=== PATIENT | female | born 1950 | race Caucasian/White ===

== ENCOUNTER 2021-11-27 19:22 | Inpatient (IN) | payer MEDICARE, SELFPAY ==
--- NOTE | ~2021-11-27 | US_ITS ---
EXAMINATION: US carotid duplex BI DATE: 11/28/2021 07:58 INDICATION: Syncope TECHNIQUE: Grayscale, color Doppler, and pulsed Doppler images of the cervical carotid arteries were obtained. The degree of vessel stenosis is placed in one of the following categories: normal, <50%, 5 0-69%, >=70% but less than near-occlusion, near-occlusion, or total occlusion. Note that percent sten osis relative to normal distal artery lumen diameter is indirectly measured from velocity measurement s as described by Thiago, et al. Radiology 2003; 229:340-346. COMPARISON: None. FINDINGS: RIGHT: The right common carotid artery (CCA) peak systolic velocity (PSV) is 89.4 cm/s. The right internal c arotid artery (ICA) PSV is 69.9 cm/s. The right ICA end-diastolic velocity (EDV) is 19.0 cm/s. [facility] ICA/CCA PSV ratio is 0.8. Grayscale and color Doppler images yield an estimate of 0% diameter red uction from plaque in the ICA. The external carotid artery (ECA) PSV is 71.4 cm/s. There is antegrade flow in the right vertebral artery. LEFT: The left CCA PSV is 108.3 cm/s. The left ICA PSV is 117.1 cm/s. The left ICA EDV is 16.6 cm/s. The [facility] ICA/CCA PSV ratio is 1.1. Grayscale and color Doppler images yield an estimate of 0% diameter redu ction from plaque in the ICA. The ECA PSV is 122.2 cm/s. There is antegrade flow in the left vertebra l artery. IMPRESSION: 1. No stenosis in the right internal carotid artery. 2. No stenosis in the left internal carotid artery. Reviewed, dictated and finalized at [facility]. Reviewed, dictated and finalized at [facility].
--- NOTE | ~2021-11-27 | US_ITS ---
EXAMINATION: US renal BI DATE: 11/28/2021 09:44 INDICATION: Renal insufficiency with elevated BUN/creatinine TECHNIQUE: Multiple ultrasound grayscale images of the kidneys were obtained. COMPARISON: None. FINDINGS: The right kidney measures 8.9 x 4.9 x 4.7 cm. The left kidney measures 9.1 x 5.0 x 6.1 cm. The kidney s demonstrate normal echogenicity. There is no hydronephrosis in either kidney. No stones identified . The bladder is normal. IMPRESSION: 1. Normal kidneys without hydronephrosis. Reviewed, dictated and finalized at [facility].
--- NOTE | ~2021-11-27 | CT_ITS ---
EXAMINATION: CT brain wo con, CT cervical spine wo con EXAM DATE: 11/27/2021 20:00 (accession [id number]), 11/27/2021 20:02 (accession [id number]) INDICATION: Head injury. TECHNIQUE: Spiral CT of the head was performed without contrast. Axial, coronal and sagittal images were reviewed. Spiral CT of the cervical spine was performed without contrast. Axial images were rev iewed. Coronal and sagittal reformatted images were also reviewed. The dose-length product (DLP) fo r this examination was 605.33 (accession [id number]), 432.62 (accession [id number]) mGy-cm. The exposure was tailored according to patient size, and iterative reconstruction (ASIR) was used as additional dose reduction technique. There is no prior study for comparison. FINDINGS: HEAD CT: There is no acute intraparenchymal hemorrhage. No evidence of intraparenchymal brain mass l esion. No evidence of acute infarction. There is mild periventricular and subcortical hypodensity, n onspecific but probably related to small vessel ischemic disease. There is moderate prominence of t he sulci and ventricles related to cerebral atrophy. There is no mass effect or midline shift. The re is no obstructive hydrocephalus suspected. There are no extra-axial collections. There are no ac minto calvarial fractures. There is vertex scalp laceration, hematoma Soft tissue is unremarkable. Th e visualized sinuses and mastoid air cells are well aerated. There is 6 mm calcified extra-axial mass in the left vertex probably small meningioma. CERVICAL CT: There is fusion hardware bridging the left lamina is at C3-C6 there are defects within t he right lamina is of these 4 levels which are likely postoperative for from prior fractures. No acut e cervical fractures suspected.. The odontoid process is intact. Pre-dens space is normal. Prevert ebral soft tissue is normal. There are no soft tissue abnormalities identified. There is no disc sp dave widening or traumatic vertebral body subluxation suspected. Moderate disc disease at C6-7, mild at the other levels. Moderate cervical arthropathy. A detailed level by level evaluation of spondylo sis can be added as addendum if requested. IMPRESSION: 1. No acute intracranial findings or cervical fracture. 2. Deep scalp vertex laceration, hematoma. 3. Cervical surgical changes and right-sided lamina defects which are probably postoperative. No acu te cervical fractures suspected. 4. Age-related intracranial findings. Reviewed, dictated and finalized at [facility]. IMPRESSION: 1. No acute intracranial findings or cervical fracture. 2. Deep scalp vertex laceration, hematoma. 3. Cervical surgical changes and right-sided lamina defects which are probably postoperative. No acute cervical fractures suspected. 4. Age-related intracranial findings.
[2021-11-27 19:25] VITALS: BP 107/46; PULSE 54; RESP 18; TEMP 36.2; O2SAT 97
--- NOTE | 2021-11-27 19:32 | ECG_ITS ---
Measurements Intervals [place] Rate: 50 P: -88 ME: 171 QRS: -20 QRSD: 93 T: 75 QT: 558 QTc: 509 Interpretive Statements SINUS BRADY[address]ARDIA ST DEVIATION AND MARKED T-WAVE ABNORMALITY, CONSIDER ANTEROSEPTAL ISCHEMIA [-0.5+ mV T WAVE IN I/aVL/V3-V6] ABNORMAL ECG NO PREVIOUS ECG AVAILABLE FOR COMPARISON Electronically Signed On 11-28-2021 16:16:15 CDT by Carloz Oreilly M.D.
[2021-11-27] MEDS: SODIUM CHLORIDE 0.9% IV 1,000 ML 999 ML IV CONT (20:57)
[2021-11-27 21:07] LABS: Hemoglobin 8.3 g/dL (12.0-15.0); Immature Platelet Fraction Pct 3.3 % (0.9-11.2); Mean Corpuscular HGB Conc 30.7 g/dl (32-36); Mean Corpuscular Hemoglobin 30.7 pg (26-34); Mean Platelet Volume 9.8 fl (7.4-10.4); Platelet Count Result 821 k/mm3 (150-375); Red Cell Distribution Width 14.2 % (11.5-14.5); White Blood Count 18.2 K/mm3 (4.5-10.0)
[2021-11-27 21:15] LABS: INR 1.1; Prothrombin Time 14.1 Seconds (11.1-14.7)
[2021-11-27 21:21] LABS: Band Neutrophils Percent 5 % (0-6); Eosinophils Absolute Manual 0.18 K/mm3 (0.02-0.5); Eosinophils Percent Manual 1 % (0-4); Lymphocytes Absolute Manual 1.09 K/mm3 (1.1-4.5); Monocytes Absolute Manual 1.27 K/mm3 (0.1-0.90); Monocytes Percent Manual 7 % (3-9); Neutrophils Absolute Manual 15.65 K/mm3 (1.7-7.2); Neutrophils Percent Manual 81 % (46-73); Platelet Estimate Increased (Adequate); Total Cells Counted 100
[2021-11-27 21:22] LABS: Hypochromasia 1+ (NORMAL)
[2021-11-27 21:43] LABS: Anion Gap 8 mmol/L (8-16); Blood Urea Nitrogen 36 mg/dL (7-17); Calcium 8.4 mg/dL (8.4-10.2); Carbon Dioxide 23 mmol/L (22-30); Chloride 101 mmol/L (98-107); Estimated CRCL calculation 25 ml/min; Estimated Glomerular Filt Rate 24; Glucose 188 mg/dL (65-110); Potassium 4.8 mmol/L (3.4-5.0); Sodium 132 mmol/L (137-145)
--- NOTE | 2021-11-27 21:45 | ED.FALL ---
HPI - Fall General Chief Complaint: Fall Stated Complaint: FALL, HEAD LAC Time Seen by Provider: 11/27/21 19:32 Source: patient Mode of arrival: EMS Limitations: no limitations History of Present Illness HPI Narrative: Patient is a 71-year-old female who was sitting on a toilet, felt lightheaded and fell hitting her head on the floor. Patient states that she almost passed out but did not. Patient complaining of laceration back of her head. Patient denies any neck, chest, back, abdomen, pelvis, hip or any extremity pain/injury. Related Data Home Medications Medication Instructions Recorded Confirmed allopurinol 100 mg PO DAILY 11/19/21 11/19/21 aspirin 81 mg PO DAILY 11/19/21 11/19/21 bupropion HCl 300 mg PO QAM 11/19/21 11/19/21 cetirizine [Zyrtec] 10 mg PO DAILY 11/19/21 11/19/21 clopidogrel 75 mg PO DAILY 11/19/21 11/19/21 evolocumab [Repatha SureClick] 140 mg SUBCUT [id number] 11/19/21 11/19/21 ezetimibe [Zetia] 10 mg PO DAILY 11/19/21 11/19/21 ferrous sulfate 325 mg PO DAILY 11/19/21 11/19/21 zdvqwgdungk-mosrsyxli-ywlexzen 1 inh INHALATION DAILY 11/19/21 11/19/21 [Trelegy Ellipta] gabapentin 300 mg PO HS 11/19/21 11/19/21 hydralazine 50 mg PO DAILY 11/19/21 11/19/21 insulin glargine [Lantus U-100 See Rx Instructions .ROUTE .COMPLEX 11/19/21 11/19/21 Insulin] insulin regular human [Novolin R 1 sliding scale dose SUBCUT 11/19/21 11/19/21 Regular U-100 Insuln] USEASDIRECTD levothyroxine 50 mcg PO DAILY 11/19/21 11/19/21 nebivolol [Bystolic] 5 mg PO DAILY 11/19/21 11/19/21 torsemide 80 mg PO QAM 11/19/21 11/19/21 Allergies Allergy/AdvReac Type Severity Reaction Status Date / Time potassium Allergy Unknown Verified 11/18/21 19:55 ambrisentan AdvReac Other Verified 11/18/21 19:55 amoxicillin AdvReac Nausea and Verified 11/18/21 19:55 Vomiting codeine AdvReac Nausea and Verified 11/18/21 19:55 Vomiting morphine AdvReac Vomiting Verified 11/18/21 19:55 rosuvastatin AdvReac Muscle Pain Verified 11/18/21 19:55 Review of Systems Review of Systems: All systems reviewed & are unremarkable except as noted in HPI and below Constitutional: Constitutional: Denies body ache(s), Denies chills, Denies excessive sweating, Denies fatigue, Denies fever(s), Denies headache(s), Denies lethargy, Denies malaise, Denies weakness and Denies weight loss Eyes: Eyes: Denies blurry vision, Denies change in vision and Denies loss of vision ENT: Denies dizziness, Denies ear discharge, Denies headache(s), Denies lip swelling, Denies epistaxis, Denies nasal congestion, Denies neck pain, Denies throat swelling and Denies tongue swelling Cardiovascular: Cardiovascular: Denies chest pain, Denies chest pain at rest, Denies chest pain with activity, Denies diaphoresis, Denies rapid heart rate, Denies edema, Denies irregular heart rhythm, Denies lightheadedness, Denies palpitations, Denies dyspnea and Denies dyspnea on exertion Respiratory: Respiratory: Denies chest congestion, Denies cough, Denies hemoptysis, Denies dyspnea and Denies dyspnea on exertion Gastrointestinal: Gastrointestinal: Denies abdominal pain, Denies melena, Denies hematochezia, Denies diarrhea, Denies nausea, Denies vomiting and Denies hematemesis Musculoskeletal: Musculoskeletal: Denies abnormal gait, Denies deformity, Denies joint swelling, Denies limited range of motion, Denies neck pain and Denies numbness Neurologic: Denies Abnormal speech present, Denies abnormal gait, Denies confusion, Denies dizziness, Denies headache(s), Denies focal weakness, Denies loss of vision, Denies numbness, Denies Other visual disturbances, Denies Sensory deficit (Neuro) and Denies weakness Psychiatric: Psychiatric: Denies confusion, Denies depression, Denies auditory hallucinations, Denies homicidal ideation and Denies suicidal ideation Endocrine: Endocrine: Denies cold intolerance, Denies excessive sweating, Denies fatigue, Denies heat intolerance and Denies palpitations Hematologic/
--- NOTE | 2021-11-27 22:13 | PM.IMHP ---
H&P: HPI History of Present Illness Date/Time: 11/27/21 22:13 Chief Complaint: 71 years old female with past medical history of hypertension, diabetes, coronary artery disease status post multiple stents on aspirin Plavix by started, recent cervical laminectomy surgery, presented status post near syncope, patient was in the bathroom she stood up and the next thing she found herself on the floor patient hit her head had laceration to the head to EMS patient lost at least half a unit blood also during the ER evaluation patient was bleeding profusely CT scan head shows positive laceration with hematoma cervical CT scan shows positive postsurgical changes hemoglobin dropped from 9.2 to 8.3 creatinine has increased from 1.5 to 2 at the ER also patient has hypotension and bradycardia was given normal saline bolus Bystolic was held patient was admitted to the hospital for further evaluation and treat. Review of Systems Review of Systems: All systems reviewed & are unremarkable except as noted in HPI and below PMFSH Past Medical History Medical History Uywnt-pv-fqsqzzb kidney injury Anxiety Chronic combined systolic and diastolic CHF (congestive heart failure) Chronic low back pain COPD (chronic obstructive pulmonary disease) Coronary artery disease Depression Gout Hyperlipidemia Hypertension Neck pain Obstructive sleep apnea Osteoarthritis Type 2 diabetes mellitus Social History Social History Social History: lives alone in a two-story home. Bedroom is on the main level. Patient has shower chair, straight cane, 4 wheeled walker. Smoking status: Former smoker Meds Home Medications and Allergies Home Medications Medication Instructions Recorded Confirmed Type allopurinol 100 mg PO DAILY 11/19/21 11/19/21 History aspirin 81 mg PO DAILY 11/19/21 11/19/21 History bupropion HCl 300 mg PO QAM 11/19/21 11/19/21 History cetirizine [Zyrtec] 10 mg PO DAILY 11/19/21 11/19/21 History clopidogrel 75 mg PO DAILY 11/19/21 11/19/21 History evolocumab [Repatha SureClick] 140 mg SUBCUT [id number] 11/19/21 11/19/21 History ezetimibe [Zetia] 10 mg PO DAILY 11/19/21 11/19/21 History ferrous sulfate 325 mg PO DAILY 11/19/21 11/19/21 History kcjzyszzrmi-zoihzyagd-gpnseyrh 1 inh INHALATION DAILY 11/19/21 11/19/21 History [Trelegy Ellipta] gabapentin 300 mg PO HS 11/19/21 11/19/21 History hydralazine 50 mg PO DAILY 11/19/21 11/19/21 History insulin glargine [Lantus U-100 See Rx Instructions .ROUTE .COMPLEX 11/19/21 11/19/21 History Insulin] insulin regular human [Novolin R 1 sliding scale dose SUBCUT 11/19/21 11/19/21 History Regular U-100 Insuln] USEASDIRECTD levothyroxine 50 mcg PO DAILY 11/19/21 11/19/21 History nebivolol [Bystolic] 5 mg PO DAILY 11/19/21 11/19/21 History torsemide 80 mg PO QAM 11/19/21 11/19/21 History Allergies Allergy/AdvReac Type Severity Reaction Status Date / Time potassium Allergy Unknown Verified 11/18/21 19:55 ambrisentan AdvReac Other Verified 11/18/21 19:55 amoxicillin AdvReac Nausea and Verified 11/18/21 19:55 Vomiting codeine AdvReac Nausea and Verified 11/18/21 19:55 Vomiting morphine AdvReac Vomiting Verified 11/18/21 19:55 rosuvastatin AdvReac Muscle Pain Verified 11/18/21 19:55 Vital Signs Vital Signs - 24 hr 11/27/21 19:25 Temperature 97.1 F L Pulse Rate 54 L Respiratory Rate 18 Blood Pressure 107/46 L Pulse Oximetry 97 Exam Const: General: comfortable HENMT: Mouth: Yes dry mucous membranes Other: Positive area of bleeding positive laceration to the scalp Eyes: Sclera: sclerae normal Neck: Neck: supple Resp: Auscultation: clear to auscultation bilaterally Cardio: Rate: regular rate Rhythm: regular rhythm GI: Inspection: non-distended GI Palp: Yes Soft to palpation and No Tenderness to palpation present (GI) Skin: Wounds: wounds
[2021-11-27 22:58] LABS: Hematocrit 24.6 % (37.0-47.0); Hemoglobin 7.6 g/dL (12.0-15.0)
[2021-11-27 23:08] LABS: Creatine Kinase 30 U/L (30-135)
[2021-11-27 23:20] LABS: Troponin I 0.028 ng/mL (0.000-0.034)
[2021-11-28] VITALS (20 sets, daily range): BP systolic 84–162; BP diastolic 46–98; PULSE 47–71; RESP 15–24; TEMP 36.2–37.3; O2SAT 91–100; BMI 41.5
[2021-11-28 00:18] LABS: Procalcitonin 0.4 ng/mL
--- NOTE | 2021-11-28 02:05 | ADMGEN ---
This patient, Erika Johns, was admitted to [facility] Surg Room 321-02. Patient/family oriented to hospital policies and general routines including ID bracelet, bed and alarms, visiting hours, pain management, procedures, bathroom and other care routines, personal items, smoking policy, room service/diet, and visiting hours. Information on how to activate the Rapid Response Team has been discussed. Patient/Family are encouraged to report perceived risks to care and to ask questions if they do not understand what they are told or what they should do.
[2021-11-28] MEDS: SODIUM CHLORIDE 0.9% IV 1,000 ML 100 ML IV CONT (03:17)
[2021-11-28 06:35] LABS: Alanine Aminotransferase 9 U/L (4-35); Albumin Level 2.8 g/dL (3.5-5.1); Alkaline Phosphatase 111 U/L (38-126); Anion Gap 6 mmol/L (8-16); Aspartate Amino Transferase 19 U/L (14-36); Bilirubin,Total 0.3 mg/dL (0.2-1.3); Blood Urea Nitrogen 34 mg/dL (7-17); Calcium 7.6 mg/dL (8.4-10.2); Carbon Dioxide 21 mmol/L (22-30); Chloride 105 mmol/L (98-107); Estimated CRCL calculation 23 ml/min; Estimated Glomerular Filt Rate 22; Glucose 154 mg/dL (65-110); Potassium 4.1 mmol/L (3.4-5.0); Sodium 132 mmol/L (137-145)
[2021-11-28 06:41] LABS: Basophils Absolute Auto 0.1 K/mm3 (0.0-0.1); Basophils Percent Auto 0.5 % (0.2-1.2); Eosinophils Absolute Auto 0.2 K/mm3 (0-0.3); Eosinophils Percent Auto 1.4 % (0-4.4); Immature Granulocyte Absolute 0.16 K/mm3 (0.00-0.031); Immature Granulocyte Percent A 1.1 % (0-0.5); Lymphocytes Absolute Auto 1.69 K/mm3 (0.9-3.2); Lymphocytes Percent Auto 11.4 % (18.3-44.2); Mean Corpuscular HGB Conc 31.4 g/dl (32-36); Mean Corpuscular Hemoglobin 30.7 pg (26-34); Mean Corpuscular Volume 97.8 fl (80-100); Mean Platelet Volume 9.7 fl (7.4-10.4); Monocytes Absolute Auto 0.9 K/mm3 (0.1-0.6); Monocytes Percent Auto 6.3 % (2.6-8.5); Neutrophils Absolute Auto 11.7 K/mm3 (1.3-6.7); Neutrophils Percent Auto 79.3 % (45.5-73.1); Platelet Count Result 619 k/mm3 (150-375); Red Blood Count 2.25 M/mm3 (4.2-5.4); White Blood Count 14.8 K/mm3 (4.5-10.0)
[2021-11-28 07:05] LABS: Hemoglobin 6.9 g/dL (12.0-15.0)
[2021-11-28 08:23] LABS: Glucose Point of Care 128 mg/dl (65-105)
[2021-11-28] MEDS: LACTATED RINGERS 1,000 ML 80 ML IV CONT (08:25)
--- NOTE | 2021-11-28 08:45 | P.PNIM_ITS ---
Progress Note: A&P Assessment and Plan (1) Near syncope: Code(s): R55 - Syncope and collapse Status: Acute Assessment and Plan: * Probably vasovagal versus orthostatic hypotension secondary to dehydration as patient was on diuretic * She did state that she thinks she thinks she tripped * BP seem to be stable at this time at 160/66 * Orthostatic BP * Cardiology consult thank you for your recommendations * IV fluid LR 80ml/hr, Monitor for fluid overload * Troponin 0.028 * Echo pending * Carotid Doppler pending * Consider MRI (2) Acute kidney injury superimposed on CKD: Code(s): N17.9 - Acute kidney failure, unspecified; N18.9 - Chronic kidney disease, unspecified Status: Acute Assessment and Plan: * BUN/Cr elevated at 34/2.20 * Baseline is 1.40-1.50 * Get a renal ultrasound * Most likely related to dehydration and hypotension * IV fluid LR at 80ml/hr * Total CK is 30 (3) Anemia: Code(s): D64.9 - Anemia, unspecified Status: Acute Assessment and Plan: * H/H 6.9/22.0 * Seems to probably be a combination of acute blood loss and chronic disease * Anemia labs iron 45, TIBC 212, % Sat 21, Transferrin 163, Ferritin 167, Vit B12 91, Folate >20.0 * Seems to be supplemented at home with iron and folic acid which can be continued * Trend labs * Transfuse one unit PRBC (11/28/21) (4) Head injury, acute: Qualifiers: Encounter type: initial encounter Qualified Code(s): S09.90XA - Unspecified injury of head, initial encounter Code(s): S09.90XA - Unspecified injury of head, initial encounter Status: Acute Assessment and Plan: * Secondary to near-syncope Associated with scalp laceration * Continue to monitor * Neuro check (5) Bradycardia: Code(s): R00.1 - Bradycardia, unspecified Status: Acute Assessment and Plan: * HR is 47 * Hold Bystolic * cardiology consult * trend HR * She is probably bradycardic at baseline (6) Cervical myelopathy: Code(s): G95.9 - Disease of spinal cord, unspecified Status: Acute Assessment and Plan: * Status post laminectomy CT scan of the cervical region showed postoperative changes (7) Coronary artery disease: Code(s): I25.10 - Atherosclerotic heart disease of [place] coronary artery without angina pectoris Status: Acute Assessment and Plan: * Re-evaluate regarding aspirin and Plavix in a.m. as patient has history of coronary artery disease status post stent * Looks to be a home medication * Hold aspirin and Plavix for now with head laceration (8) COPD (chronic obstructive pulmonary disease): Code(s): J44.9 - Chronic obstructive pulmonary disease, unspecified Status: Acute Assessment and Plan: * Stable continue home medication (9) Type 2 diabetes mellitus: Code(s): E11.9 - Type 2 diabetes mellitus without complications Status: Acute Assessment and Plan: * Current glucose is 154 * Accu cheks AC/HS * Insulin sliding scale * Trend glucose * Adjust therapy as indicated (10) Hypertension: Code(s): I10 - Essential (primary) hypertension Status: Acute Assessment and Plan: * BP currently stable at 134/49 * Medications are being held fo
--- NOTE | 2021-11-28 08:45 | PM.IMPN ---
Progress Note: A&P Assessment and Plan (1) Near syncope: Code(s): R55 - Syncope and collapse Status: Acute Assessment and Plan: Probably vasovagal versus orthostatic hypotension secondary to dehydration as patient was on diuretic She did state that she thinks she thinks she tripped BP seem to be stable at this time at 160/66 Orthostatic BP Cardiology consult thank you for your recommendations IV fluid LR 80ml/hr, Monitor for fluid overload Troponin 0.028 Echo pending Carotid Doppler pending Consider MRI (2) Acute kidney injury superimposed on CKD: Code(s): N17.9 - Acute kidney failure, unspecified; N18.9 - Chronic kidney disease, unspecified Status: Acute Assessment and Plan: BUN/Cr elevated at 34/2.20 Baseline is 1.40-1.50 Get a renal ultrasound Most likely related to dehydration and hypotension IV fluid LR at 80ml/hr Total CK is 30 (3) Anemia: Code(s): D64.9 - Anemia, unspecified Status: Acute Assessment and Plan: H/H 6.9/22.0 Seems to probably be a combination of acute blood loss and chronic disease Anemia labs iron 45, TIBC 212, % Sat 21, Transferrin 163, Ferritin 167, Vit B12 91, Folate >20.0 Seems to be supplemented at home with iron and folic acid which can be continued Trend labs Transfuse one unit PRBC (11/28/21) (4) Head injury, acute: Qualifiers: Encounter type: initial encounter Qualified Code(s): S09.90XA - Unspecified injury of head, initial encounter Code(s): S09.90XA - Unspecified injury of head, initial encounter Status: Acute Assessment and Plan: Secondary to near-syncope Associated with scalp laceration Continue to monitor Neuro check (5) Bradycardia: Code(s): R00.1 - Bradycardia, unspecified Status: Acute Assessment and Plan: HR is 47 Hold Bystolic cardiology consult trend HR She is probably bradycardic at baseline (6) Cervical myelopathy: Code(s): G95.9 - Disease of spinal cord, unspecified Status: Acute Assessment and Plan: Status post laminectomy CT scan of the cervical region showed postoperative changes (7) Coronary artery disease: Code(s): I25.10 - Atherosclerotic heart disease of [place] coronary artery without angina pectoris Status: Acute Assessment and Plan: Re-evaluate regarding aspirin and Plavix in a.m. as patient has history of coronary artery disease status post stent Looks to be a home medication Hold aspirin and Plavix for now with head laceration (8) COPD (chronic obstructive pulmonary disease): Code(s): J44.9 - Chronic obstructive pulmonary disease, unspecified Status: Acute Assessment and Plan: Stable continue home medication (9) Type 2 diabetes mellitus: Code(s): E11.9 - Type 2 diabetes mellitus without complications Status: Acute Assessment and Plan: Current glucose is 154 Accu cheks AC/HS Insulin sliding scale Trend glucose Adjust therapy as indicated (10) Hypertension: Code(s): I10 - Essential (primary) hypertension Status: Acute Assessment and Plan: BP currently stable at 134/49 Medications are being held for now since she did present with hypotension restart when appropriate Trend BP (11) Obstructive sleep apnea: Code(s): G47.33 - Obstructive sleep apnea (adult) (pediatric) Status: Acute Assessment and Plan: Continue home treatment (12) Chronic combined systolic and diastolic CHF (congestive heart failure): Code(s): I50.42 - Chronic combined systolic (congestive) and diastolic (congestive) heart failure Status: Acute Assessment and Plan: Avoid fluid overload hold diuretics re-evaluate in a.m. BNP [id number] Does not seem to be in an acute exacerbation Eitan
[2021-11-28 08:56] LABS: Transferrin 163 mg/dL (206-381)
[2021-11-28 08:58] LABS: NT Pro B Type Natriuretic Pept 12100 pg/mL (5-100)
[2021-11-28 09:03] LABS: Iron 45 ug/dL (37-170)
[2021-11-28 09:16] LABS: Percent Iron Saturation 21 % (20-50)
[2021-11-28 09:59] LABS: Folic Acid > 20.0 ng/mL (2.76->20)
[2021-11-28] MEDS: ACETAMINOPHEN 325 MG TABLET 650 MG PO ×2 (11:30→20:42)
[2021-11-28 11:49] LABS: Glucose Point of Care 141 mg/dl (65-105)
[2021-11-28] MEDS: TUBING, BLOOD PLUM PUMP TUBING 1 EACH XX (13:50)
[2021-11-28] MEDS: SODIUM CHLORIDE 0.9% IV 250 ML 30 ML IV CONT ×2 (13:50→16:43)
--- NOTE | 2021-11-28 14:04 | PM.CNCAR ---
Assessment and Plan Assessment and plan (1) Coronary artery disease: Code(s): I25.10 - Atherosclerotic heart disease of [place] coronary artery without angina pectoris Status: Acute Assessment and Plan: Patient has a history of multiple stents including InStent restenosis of the RCA in 2017. She does have chronic dyspnea which is worsening and could be an anginal equivalent. She has a markedly abnormal ECG concerning for LAD ischemia. Will continue aspirin. Will add back clopidogrel 75 mg p.o. daily which she had been previously on at the rehab hospital. Will start her on nitroglycerin paste 1 in Q 6 hours. Continue nebivolol, Repatha and Zetia. Will transfer to intermediate care unit. Will also order a stat troponin. Will discuss with Dr. Moore regarding possibility of cardiac catheterization. This is a difficult and complex situation given her severe anemia, known CAD, recent surgery, worsening renal failure and pericardial issues. (2) Abnormal ECG: Code(s): R94.31 - Abnormal electrocardiogram [ECG] [EKG] Status: Acute Assessment and Plan: Significantly abnormal ECG concerning for LAD ischemia. (3) Acute kidney injury superimposed on CKD: Code(s): N17.9 - Acute kidney failure, unspecified; N18.9 - Chronic kidney disease, unspecified Status: Acute Assessment and Plan: Creatinine above 2 at this point. Slightly worsening. (4) Chronic combined systolic and diastolic CHF (congestive heart failure): Code(s): I50.42 - Chronic combined systolic (congestive) and diastolic (congestive) heart failure Status: Acute Assessment and Plan: Continue current medications but will add nitroglycerin. (5) Pericardial effusion: Code(s): I31.3 - Pericardial effusion (noninflammatory) Status: Acute Assessment and Plan: She does have a pericardial effusion as well as a thickened pericardium/echogenicity seen on the pericardium.? Etiology or clinical significance to this point. May also be contributing to her chronic dyspnea (6) Hypertension associated with diabetes: Code(s): E11.59 - Type 2 diabetes mellitus with other circulatory complications; I15.2 - Hypertension secondary to endocrine disorders Status: Acute Assessment and Plan: At goal (7) Severe anemia: Code(s): D64.9 - Anemia, unspecified Status: Acute Assessment and Plan: She has only ordered for 1 unit of blood. Will will order 1 more unit of packed red blood cells. (8) Hyperlipidemia associated with type 2 diabetes mellitus: Code(s): E11.69 - Type 2 diabetes mellitus with other specified complication; E78.5 - Hyperlipidemia, unspecified Status: Acute Assessment and Plan: [place] History of Present Illness History of Present Illness Consult date/time: 11/28/21 14:04 Requesting physician: Donta Farias MD Reason For Visit: Near Syncope, Head Injury Narrative: Reason for consultation: Bradycardia, near syncope Date of service 11/28/2021 Requesting provider: Dr. Farias History: Patient is a 71-year-old female patient of Dr. Romo who has a history of multiple stents. She does have a history of multivessel CAD and her last stent she states was in 2019. Details of that catheterization are not known. In 2017 she did have a 99% ISR of the RCA. She also had borderline significant LAD and circumflex disease at that point in time. She has a cervical laminectomy surgery recently and had been recovering and rehab when she fell to the floor. She adamantly states that she did not pass out. She thinks that her feet simply when out from underneath her but she hit her head quite hard on the floor. She sustained a significant laceration, hematoma and had an extreme amount of bleeding per patient and documentation. Hemoglobin has dropped to 6.9. She is in the process of being transfused 1 unit of blood. She is short of david
--- NOTE | 2021-11-28 14:52 | PC.NURSE ---
PATIENT TRANSFERRED TO ICU 3 FROM [facility]. SR ON MONITOR. CALL LIGHT WITHIN REACH. WILL CONTINUE TO MONITOR.
--- NOTE | 2021-11-28 15:23 | PM.PNCARD ---
Progress Note: A&P Additional Plan 71-year-old lady with: Significant head trauma with series bleeding and severe anemia on presentation. She has a history of coronary disease with previous PCI but is not actively having any chest pain nor was she having any chest pain prior to the fall. Her ECG findings certainly would be concerning for ischemia but also can certainly be explained by the type of blow to the head that has occurred. At this point since she is not experiencing chest pain her troponin levels are negative I do not believe it is necessary or prudent to bring her for a urgent coronary angiogram. We will follow her closely with you however during this hospitalization. Johnson Moore MD [facility] Subjective Date/time seen: Date of service: 11/28/21 15:23 Interval history: Follow-up visit to this 71-year-old woman with: Fall and significant hemorrhagic event with head trauma and low hemoglobin. Patient fell in the rehab facility where she was recovering from cervical spine operation at [facility]. She has history of coronary artery disease with previous PCI all of the details of which are not available to us at this hospital. She is having no ischemic chest pain and has negative troponin levels. Electrocardiogram is very abnormal looking with deep symmetrical precordial T-wave inversions. Echocardiogram shows septal hypokinesis the anterior wall however is not hypodynamic. The pericardium looks remarkably thick. She is receiving her 1st unit of blood and hemoglobin on presentation was 6.9. Exam Const: General: comfortable and no acute distress HENMT: Mouth: Yes moist mucous membranes Eyes: Sclera: sclerae normal Neck: Neck: supple and no JVD Resp: Effort & Inspection: normal respiratory effort Auscultation: clear to auscultation bilaterally Cardio: Rate: regular rate Rhythm: regular rhythm Other: No murmur no gallop GI: GI Palp: Yes Soft to palpation Auscultation: normal bowel sounds Skin: General skin exam: normal color Neuro: Cognition (Neuro): normal cognition Extrem: General: normal to inspection Objective Data Vital Signs Vital Signs: Vital Signs - 24 hr 11/27/21 19:25 11/28/21 01:34 11/28/21 04:00 Temperature 36.2 C L 36.7 C Pulse Rate 54 L 50 L 47 L Respiratory Rate 18 20 Blood Pressure 107/46 L 113/56 L Pulse Oximetry 97 98 11/28/21 05:42 11/28/21 08:00 11/28/21 12:00 Temperature 36.7 C Pulse Rate 70 53 L 61 Respiratory Rate 20 Blood Pressure 134/49 L Pulse Oximetry 91 11/28/21 13:37 11/28/21 14:51 11/28/21 15:08 Temperature 36.4 C Pulse Rate 59 L 65 Respiratory Rate 18 24 H Blood Pressure 84/58 L 138/53 L Pulse Oximetry 100 99 96 Intake/Output Intake/Output: Intake & Output 11/25/21 11/26/21 11/27/21 11/28/21 23:59 23:59 23:59 23:59 Intake Total 1000 240 Balance 1000 240 Meds/Results Medications: Active Medications Generic Name Dose Route Start Last Admin Trade Name Freq PRN Reason Stop Dose Admin Acetaminophen 650 mg 11/27/21 22:10 11/28/21 11:30 Acetaminophen 325 Mg Tablet PO 650 mg Q4H PRN Administration Mild Pain (1-3) or Fever Hydrocodone Bitart/Acetaminophen 1 tab 11/27/21 22:10 Hydrocodone/Acetaminophen (*Crx) 5-325 Mg Tablet PO Q4H PRN Moderate Pain (4-6) Allopurinol 100 mg 11/28/21 11:35 Allopurinol 100 Mg Tablet PO DAILY YANNA Aspirin 81 mg 11/28/21 11:40 Aspirin 81 Mg Chewable Tablet PO DAILY@0800 YANNA Bisacodyl 5 mg 11/27/21 22:10 Bisacodyl 5 Mg Tablet Ec PO DAILY PRN Constipation Bupropion HCl 300 mg 11/28/21 11:35 Bupropion Hcl Xl (24 Hr) 150 Mg Tabcr PO QAM YANNA Cyanocobalamin 500 mcg 11/28/21 11:35 Cyanocobalamin 500 Mcg Tablet PO DAILY YANNA Dextrose 12.5 gm 11/27/21 22:08 Dextrose 50% 25 Gm/50 Ml Syringe IV PUSH PRN PRN Hypoglycemia Protocol Ezetimibe 10 mg 11/28/21 11:35 Ezeti
--- NOTE | 2021-11-28 15:47 | PCPTNOTE ---
Attempted Physical therapy evaluation, patient being transferred to ICU. PT Orders will be stopped until patient is medically stable.
[2021-11-28] MEDS: buPROPion HCL XL (24 HR) 150 MG TABCR 300 MG PO (16:35)
[2021-11-28] MEDS: FOLIC ACID 1 MG TABLET PO (16:36)
[2021-11-28] MEDS: EZETIMIBE 10 MG TABLET PO (16:36)
[2021-11-28] MEDS: ASPIRIN 81 MG CHEWABLE TABLET PO (16:36)
[2021-11-28] MEDS: GABAPENTIN 300 MG CAPSULE PO (16:36)
[2021-11-28] MEDS: FERROUS SULFATE 324 MG TABLET PO (16:36)
[2021-11-28] MEDS: CYANOCOBALAMIN 500 MCG TABLET PO (16:37)
[2021-11-28] MEDS: allopurinoL 100 MG TABLET PO (16:37)
[2021-11-28] MEDS: LORATADINE 10 MG TABLET PO (16:37)
[2021-11-28] MEDS: GABAPENTIN 300 MG CAPSULE 600 MG PO (20:42)
[2021-11-28 20:58] LABS: Glucose Point of Care 203 mg/dl (65-105)
[2021-11-28 21:19] LABS: Glucose Point of Care 178 mg/dl (65-105)
[2021-11-28 22:03] LABS: Hematocrit 30.9 % (37.0-47.0); Hemoglobin 9.7 g/dL (12.0-15.0)
--- NOTE | 2021-11-28 22:08 | ECHO_ITS ---
Patient Info Name: Erika Johns Age: 71 years : 1950 Gender: Female Ht: 62 in Wt: 216 lbs BSA: 2.12 m2 HR: 56 bpm BP: 134 / 49 mmHg Heart Rhythm: Sinus Rhythm Technical Quality: Good Exam Date: 11/28/2021 10:58 AM Exam Location: [facility] Pulmonary Exam Room: 321 Patient Status: Outpatient Admit Date: 11/27/2021 Staff Ordering Physician: Raymond Alcocer M.A., MD Sales Support Rep: Irena Fam RDCS Attending Provider: Raymond Alcocer M.A., MD Referring Physician: Julius GONZALEZ; Exam Type: CA echo doppler color flow Study Info Indications - syncope Complete two-dimensional, color flow and Doppler transthoracic echocardiogram is performed. Summary 1. Complete two-dimensional, color flow and Doppler transthoracic echocardiogram is performed. 2. Left ventricular chamber dimension is normal. 3. Left ventricular systolic function is normal, estimated at 60-65%. 4. There is mildly increased left ventricular wall thickness. 5. The left ventricular diastolic function is grade II diastolic dysfunction. 6. The inferoseptal wall, basal anteroseptal, and mid anteroseptal are hypokinetic. 7. Left atrial chamber dimension is mildly enlarged. 8. There is mild aortic valve regurgitation. 9. There is mild mitral valve stenosis. 10. There is mild mitral valve regurgitation. 11. The mitral valve annulus is moderately calcified. 12. There is mild tricuspid valve regurgitation. 13. Moderate pulmonary hypertension, estimated pulmonary arterial systolic pressure is 54 mmHg. 14. The pericardium appears increased echogenicity of the pericardium. 15. There is small pericardial effusion. Left Ventricle Left ventricular chamber dimension is normal. Left ventricular systolic function is normal, estimated at 60-65%. There is mildly increased left ventricular wall thickness. The left ventricular diastolic function is grade II diastolic dysfunction. The inferoseptal wall, basal anteroseptal, and mid anteroseptal are hypokinetic. All other yates appear normal. Right Ventricle Right ventricular chamber dimension is normal. Right ventricular systolic function is normal. Left Atria Left atrial chamber dimension is mildly enlarged. Right Atria Right atrial chamber dimension is normal. Atrial Septum Intact interatrial septum visualized by color flow imaging. Aortic Valve The aortic valve is trileaflet. There is mild aortic valve sclerosis. There is no aortic valve stenosis. There is mild aortic valve regurgitation. Pulmonic Valve The pulmonic valve is normal. There is no pulmonic valve stenosis. There is trace pulmonic regurgitation. Mitral Valve The mitral valve has thickened leaflets. There is mild mitral valve stenosis. There is mild mitral valve regurgitation. The mitral valve annulus is moderately calcified. Tricuspid Valve The tricuspid valve leaflets are normal. There is no significant tricuspid valve stenosis. There is mild tricuspid valve regurgitation. Moderate pulmonary hypertension, estimated pulmonary arterial systolic pressure is 54 mmHg. Pericardium/Pleural The pericardium appears increased echogenicity of the pericardium. There is small pericardial effusion. Inferior Vena Cava Normal inferior vena cava with >50% collapse upon inspiration consistent with elevated right atrial pressure, 10 mmHg. Aorta The aortic root size at the sinus of Valsalva is normal. Left Ventricular Outflow Tract
[2021-11-29] VITALS (14 sets, daily range): BP systolic 115–178; BP diastolic 55–96; PULSE 56–72; RESP 12–22; TEMP 36.4–36.7; O2SAT 92–98
[2021-11-29 00:30] LABS: Hematocrit 26.1 % (37.0-47.0); Hemoglobin 8.3 g/dL (12.0-15.0)
[2021-11-29] MEDS: LACTATED RINGERS 1,000 ML 80 ML IV CONT (04:22)
[2021-11-29 05:46] LABS: Alanine Aminotransferase 9 U/L (4-35); Albumin Level 2.8 g/dL (3.5-5.1); Alkaline Phosphatase 107 U/L (38-126); Anion Gap 8 mmol/L (8-16); Aspartate Amino Transferase 20 U/L (14-36); Bilirubin,Total 0.7 mg/dL (0.2-1.3); Blood Urea Nitrogen 35 mg/dL (7-17); Calcium 7.8 mg/dL (8.4-10.2); Carbon Dioxide 18 mmol/L (22-30); Chloride 107 mmol/L (98-107); Estimated CRCL calculation 23 ml/min; Estimated Glomerular Filt Rate 22; Glucose 131 mg/dL (65-110); Potassium 4.4 mmol/L (3.4-5.0); Sodium 133 mmol/L (137-145)
[2021-11-29] MEDS: LEVOTHYROXINE SODIUM 50 MCG TABLET PO (05:54)
[2021-11-29 07:53] LABS: Basophils Absolute Auto 0.1 K/mm3 (0.0-0.1); Basophils Percent Auto 0.6 % (0.2-1.2); Eosinophils Absolute Auto 0.6 K/mm3 (0-0.3); Eosinophils Percent Auto 3.6 % (0-4.4); Hematocrit 28.2 % (37.0-47.0); Hemoglobin 8.9 g/dL (12.0-15.0); Immature Granulocyte Absolute 0.13 K/mm3 (0.00-0.031); Immature Granulocyte Percent A 0.8 % (0-0.5); Lymphocytes Absolute Auto 1.56 K/mm3 (0.9-3.2); Lymphocytes Percent Auto 10.1 % (18.3-44.2); Mean Corpuscular HGB Conc 31.6 g/dl (32-36); Mean Corpuscular Hemoglobin 29.6 pg (26-34); Mean Corpuscular Volume 93.7 fl (80-100); Mean Platelet Volume 9.6 fl (7.4-10.4); Monocytes Absolute Auto 1.4 K/mm3 (0.1-0.6); Neutrophils Absolute Auto 11.7 K/mm3 (1.3-6.7); Neutrophils Percent Auto 75.9 % (45.5-73.1); Platelet Count Result 584 k/mm3 (150-375); Red Blood Count 3.01 M/mm3 (4.2-5.4); Red Cell Distribution Width 17.4 % (11.5-14.5); White Blood Count 15.5 K/mm3 (4.5-10.0)
--- NOTE | 2021-11-29 08:30 | P.PNIM_ITS ---
Progress Note: A&P Assessment and Plan (1) Near syncope: Code(s): R55 - Syncope and collapse Status: Acute Assessment and Plan: * Probably vasovagal versus orthostatic hypotension secondary to dehydration as patient was on diuretic * She did state that she thinks she thinks she tripped * BP seem to be stable at this time at 153/96 * Orthostatic BP * Cardiology consult thank you for your recommendations * IV fluid LR 80ml/hr, Monitor for fluid overload, will stop for now * Troponin 0.028 * Echo normal systolic function of 60 65% grade 2 diastolic dysfunction mild valve regurg or stenosis. * Carotid Doppler No stenosis the bilateral carotid arteries * Consider MRI (2) Acute kidney injury superimposed on CKD: Code(s): N17.9 - Acute kidney failure, unspecified; N18.9 - Chronic kidney disease, unspecified Status: Acute Assessment and Plan: * BUN/Cr elevated at 35/2.20 * Baseline is 1.40-1.50 * Renal ultrasound Normal kidneys without hydronephrosis * Most likely related to dehydration and hypotension * IV fluid LR at 80ml/hr discontinue for now * Total CK is 30 (3) Anemia: Code(s): D64.9 - Anemia, unspecified Status: Acute Assessment and Plan: * H/H 8.9/28.2 * Seems to probably be a combination of acute blood loss and chronic disease * Anemia labs iron 45, TIBC 212, % Sat 21, Transferrin 163, Ferritin 167, Vit B12 91, Folate >20.0 * Seems to be supplemented at home with iron and folic acid which can be continued * Trend labs * Transfuse two unit PRBC (11/28/21) (4) Head injury, acute: Qualifiers: Encounter type: initial encounter Qualified Code(s): S09.90XA - U nspecified injury of head, initial encounter Code(s): S09.90XA - Unspecified injury of head, initial encounter Status: Acute Assessment and Plan: * Secondary to near-syncope Associated with scalp laceration * Continue to monitor * Neuro check (5) Bradycardia: Code(s): R00.1 - Bradycardia, unspecified Status: Acute Assessment and Plan: * HR is 55-60 * pelvic baseline since patient is on Bystolic * cardiology consult * trend HR * She is probably bradycardic at baseline (6) Cervical myelopathy: Code(s): G95.9 - Disease of spinal cord, unspecified Status: Acute Assessment and Plan: * Status post laminectomy CT scan of the cervical region showed postoperative changes (7) Coronary artery disease: Code(s): I25.10 - Atherosclerotic heart disease of [place] coronary artery without angina pectoris Status: Acute Assessment and Plan: * Re-evaluate regarding aspirin and Plavix in a.m. as patient has history of coronary artery disease status post stent * Looks to be a home medication * Plavix and aspirin has been restarted per Cardiology * Vishnu on board * EKG was abnormal however cardiology is reviewed and decided that this is not something to intervene at this time and could be related to blood loss (8) COPD (chronic obstructive pulmonary disease): Code(s): J44.9 - Chronic obstructive pulmonary disease, unspecified Status: Acute Assessment and Plan: * Stable continue home medication (9) Type 2 diabetes mellitus: Code(s): E11.9 - Type 2 diabetes mellitus without complications Status: Acute
--- NOTE | 2021-11-29 08:30 | PM.IMPN ---
Progress Note: A&P Assessment and Plan (1) Near syncope: Code(s): R55 - Syncope and collapse Status: Acute Assessment and Plan: Probably vasovagal versus orthostatic hypotension secondary to dehydration as patient was on diuretic She did state that she thinks she thinks she tripped BP seem to be stable at this time at 153/96 Orthostatic BP Cardiology consult thank you for your recommendations IV fluid LR 80ml/hr, Monitor for fluid overload, will stop for now Troponin 0.028 Echo normal systolic function of 60 65% grade 2 diastolic dysfunction mild valve regurg or stenosis. Carotid Doppler No stenosis the bilateral carotid arteries Consider MRI (2) Acute kidney injury superimposed on CKD: Code(s): N17.9 - Acute kidney failure, unspecified; N18.9 - Chronic kidney disease, unspecified Status: Acute Assessment and Plan: BUN/Cr elevated at 35/2.20 Baseline is 1.40-1.50 Renal ultrasound Normal kidneys without hydronephrosis Most likely related to dehydration and hypotension IV fluid LR at 80ml/hr discontinue for now Total CK is 30 (3) Anemia: Code(s): D64.9 - Anemia, unspecified Status: Acute Assessment and Plan: H/H 8.9/28.2 Seems to probably be a combination of acute blood loss and chronic disease Anemia labs iron 45, TIBC 212, % Sat 21, Transferrin 163, Ferritin 167, Vit B12 91, Folate >20.0 Seems to be supplemented at home with iron and folic acid which can be continued Trend labs Transfuse two unit PRBC (11/28/21) (4) Head injury, acute: Qualifiers: Encounter type: initial encounter Qualified Code(s): S09.90XA - Unspecified injury of head, initial encounter Code(s): S09.90XA - Unspecified injury of head, initial encounter Status: Acute Assessment and Plan: Secondary to near-syncope Associated with scalp laceration Continue to monitor Neuro check (5) Bradycardia: Code(s): R00.1 - Bradycardia, unspecified Status: Acute Assessment and Plan: HR is 55-60 pelvic baseline since patient is on Bystolic cardiology consult trend HR She is probably bradycardic at baseline (6) Cervical myelopathy: Code(s): G95.9 - Disease of spinal cord, unspecified Status: Acute Assessment and Plan: Status post laminectomy CT scan of the cervical region showed postoperative changes (7) Coronary artery disease: Code(s): I25.10 - Atherosclerotic heart disease of [place] coronary artery without angina pectoris Status: Acute Assessment and Plan: Re-evaluate regarding aspirin and Plavix in a.m. as patient has history of coronary artery disease status post stent Looks to be a home medication Plavix and aspirin has been restarted per Cardiology Zetia on board EKG was abnormal however cardiology is reviewed and decided that this is not something to intervene at this time and could be related to blood loss (8) COPD (chronic obstructive pulmonary disease): Code(s): J44.9 - Chronic obstructive pulmonary disease, unspecified Status: Acute Assessment and Plan: Stable continue home medication (9) Type 2 diabetes mellitus: Code(s): E11.9 - Type 2 diabetes mellitus without complications Status: Acute Assessment and Plan: Current glucose is 131 Accu cheks AC/HS Insulin sliding scale Trend glucose Adjust therapy as indicated (10) Hypertension: Code(s): I10 - Essential (primary) hypertension Status: Acute Assessment and Plan: BP currently stable at 153/96 blood pressure medications have been restarted restart when appropriate Trend BP (11) Obstructive sleep apnea: Code(s): G47.33 - Obstructive sleep apnea (adult) (pediatric) Status: Acute Assessment and Plan: Continue home treatment
[2021-11-29] MEDS: CYANOCOBALAMIN 500 MCG TABLET PO (08:56)
[2021-11-29] MEDS: TIZANIDINE HCL 2 MG TABLET PO (08:56)
[2021-11-29] MEDS: EZETIMIBE 10 MG TABLET PO (08:57)
[2021-11-29] MEDS: FOLIC ACID 1 MG TABLET PO (08:57)
[2021-11-29] MEDS: CLOPIDOGREL BISULFATE 75 MG TABLET PO (08:57)
[2021-11-29] MEDS: GABAPENTIN 300 MG CAPSULE PO (08:57)
[2021-11-29] MEDS: LORATADINE 10 MG TABLET PO (08:57)
[2021-11-29] MEDS: buPROPion HCL XL (24 HR) 150 MG TABCR 300 MG PO (08:57)
[2021-11-29] MEDS: FERROUS SULFATE 324 MG TABLET PO (08:57)
[2021-11-29] MEDS: allopurinoL 100 MG TABLET PO (08:58)
[2021-11-29] MEDS: ASPIRIN 81 MG CHEWABLE TABLET PO (08:58)
[2021-11-29 09:06] LABS: Glucose Point of Care 133 mg/dl (65-105)
[2021-11-29] MEDS: FLUTICASONE/UMECLIDIN/VILANTER 100-62.5-25 MCG ELLIPTA 1 PUFF INHALATION (09:06)
--- NOTE | 2021-11-29 09:14 | PCOTNOTE ---
OT Orders will be stopped until patient is medically stable. Please reorder OT evaluation orders when stable.
[2021-11-29] MEDS: INSULIN GLARGINE (*BKC) 100 UNITS/ML 22 UNITS SUB-Q (09:31)
--- NOTE | 2021-11-29 09:39 | ECG_ITS ---
Measurements Intervals [place] Rate: 67 P: SC: 0 QRS: -23 QRSD: 100 T: -60 QT: 423 QTc: 447 Interpretive Statements SINUS RHYTHM WITH PAC POOR R-WAVE PROGRESSION NONSPECIFIC T-WAVE ABNORMALITY ABNORMAL ECG COMPARED TO ECG 11/27/2021 20:18:20 T-WAVE ABNORMALITY IS IMPROVING. Electronically Signed On 11-29-2021 13:24:37 CDT by Johnson Moore M.D.
[2021-11-29] MEDS: NEBIVOLOL HCL 5 MG TABLET 10 MG PO (09:47)
[2021-11-29] MEDS: BUMETANIDE 1 MG TABLET PO (09:48)
--- NOTE | 2021-11-29 09:50 | PM.PNCARD ---
Progress Note: A&P Additional Plan 71-year-old lady with: Chronic stable ischemic heart disease with previous percutaneous revascularization by her frog catcher elsewhere. Full details of these procedures are not available to us here at [facility]. No clinical cardiac instability. Patient had significant ECG abnormalities probably related to the head trauma. She is asymptomatic and doing well this morning. Will order a follow-up EKG. Will also resume her beta-dianna as she is now hypertensive. She is she can move back to the floor at this time in my opinion Johnson Moore MD [facility] Subjective Date/time seen: Date of service: 11/29/21 09:50 Interval history: Follow-up visit in this 71-year-old woman with: Significant head trauma with hemorrhagic blood loss and anemia while she was at the rehab facility recovering from C-spine surgery. No cardiac symptoms and following this event but significant ECG abnormalities which I believe were the result of the head trauma. She has been transfused to a more reasonable hemoglobin asymptomatic enjoying her breakfast at the time of this evaluation. Exam Const: General: comfortable and no acute distress Other: Obese white female pleasant cooperative no distress of any sort HENMT: Mouth: Yes moist mucous membranes Eyes: Sclera: sclerae normal Neck: Neck: supple and no JVD Resp: Effort & Inspection: normal respiratory effort Auscultation: clear to auscultation bilaterally Cardio: Rate: regular rate Rhythm: regular rhythm Other: PMI not palpable. Very soft systolic murmur audible at the left sternal border GI: GI Palp: Yes Soft to palpation Auscultation: normal bowel sounds Skin: General skin exam: normal color Neuro: Cognition (Neuro): normal cognition Extrem: General: normal to inspection Other: No edema, good perfusion Objective Data Vital Signs Vital Signs: Vital Signs - 24 hr 11/28/21 12:00 11/28/21 13:37 11/28/21 14:51 Temperature 36.4 C Pulse Rate 61 59 L 65 Respiratory Rate 18 24 H Blood Pressure 84/58 L 138/53 L Pulse Oximetry 100 99 11/28/21 15:00 11/28/21 15:08 11/28/21 15:24 Temperature 36.2 C L Pulse Rate 64 65 Respiratory Rate 18 19 Blood Pressure 162/52 H Pulse Oximetry 91 96 94 11/28/21 16:00 11/28/21 17:03 11/28/21 17:18 Temperature 37.3 C 37.3 C 36.8 C Pulse Rate 65 66 64 Respiratory Rate 17 18 19 Blood Pressure 148/59 H 161/98 H 138/57 L Pulse Oximetry 91 93 93 11/28/21 18:00 11/28/21 18:18 11/28/21 19:18 Temperature 36.7 C 36.8 C Pulse Rate 68 71 67 Respiratory Rate 17 18 Blood Pressure 138/58 L 136/47 L Pulse Oximetry 91 11/28/21 20:00 11/28/21 20:18 11/28/21 22:00 Temperature 36.7 C 36.7 C Pulse Rate 66 64 62 Respiratory Rate 18 15 Blood Pressure 129/49 L 127/46 L Pulse Oximetry 95 94 11/29/21 00:00 11/29/21 02:00 11/29/21 04:00 Temperature 36.7 C 36.4 C L Pulse Rate 59 L 57 L 58 L Respiratory Rate 17 14 Blood Pressure 115/55 L 145/68 H Pulse Oximetry 92 97 11/29/21 06:00 11/29/21 08:00 11/29/21 09:06 Temperature Pulse Rate 61 Respiratory Rate Blood Pressure 153/96 H Pulse Oximetry 97 96 11/29/21 09:47 Temperature Pulse Rate 72 Respiratory Rate Blood Pressure Pulse Oximetry Intake/Output Intake/Output: Intake & Output 11/26/21 11/27/21 11/28/21 11/29/21 23:59 23:59 23:59 23:59 Intake Total 1000 2840 250 Output Total 450 Balance 1000 2840 -200 Meds/Results Medications: Active Medications Generic Name Dose Route Start Last Admin Trade Name Freq PRN Reason Stop Dose Admin Acetaminophen 650 mg 11/27/21 22:10 11/28/21 20:42 Acetaminophen 325 Mg Tablet PO 650 mg Q4H PRN Administration Mild Pain (1-3) or Fever Hydrocodone Bitart/Acetaminophen 1 tab 11/27/21 22:10 Hydrocodone/Acetaminophen (*Crx) 5-325 Mg Tablet PO Q4H PRN Moderate Pain (4-6) Allopurinol 100 mg 11/28/21 11:35 11/29/21 08:58
[2021-11-29] MEDS: INSULIN ASPART (*BKC) 100 UNITS/ML SUB-Q ×2 (11:56→20:32)
[2021-11-29 11:57] LABS: Glucose Point of Care 213 mg/dl (65-105)
--- NOTE | 2021-11-29 13:21 | PC.NURSE ---
PPatient in ICU as IMU overflow, medically stable awaiting PT/OT as ordered.
--- NOTE | 2021-11-29 14:30 | PC.NURSE ---
Pt received from ICU. Patient oriented to the unit.
[2021-11-29 16:35] LABS: Glucose Point of Care 192 mg/dl (65-105)
[2021-11-29] MEDS: GABAPENTIN 300 MG CAPSULE 600 MG PO (20:22)
[2021-11-29 20:58] LABS: Glucose Point of Care 237 mg/dl (65-105)
[2021-11-30] VITALS (15 sets, daily range): BP systolic 119–168; BP diastolic 42–70; PULSE 56–78; RESP 16–32; TEMP 36.4–37; O2SAT 93–100
[2021-11-30 06:06] LABS: Basophils Absolute Auto 0.1 K/mm3 (0.0-0.1); Basophils Percent Auto 0.8 % (0.2-1.2); Eosinophils Absolute Auto 0.4 K/mm3 (0-0.3); Eosinophils Percent Auto 2.8 % (0-4.4); Hematocrit 27.1 % (37.0-47.0); Hemoglobin 8.8 g/dL (12.0-15.0); Immature Granulocyte Absolute 0.14 K/mm3 (0.00-0.031); Lymphocytes Absolute Auto 1.58 K/mm3 (0.9-3.2); Lymphocytes Percent Auto 11.3 % (18.3-44.2); Mean Corpuscular HGB Conc 32.5 g/dl (32-36); Mean Corpuscular Hemoglobin 29.9 pg (26-34); Mean Corpuscular Volume 92.2 fl (80-100); Mean Platelet Volume 9.7 fl (7.4-10.4); Monocytes Absolute Auto 1.4 K/mm3 (0.1-0.6); Monocytes Percent Auto 10.1 % (2.6-8.5); Neutrophils Absolute Auto 10.3 K/mm3 (1.3-6.7); Platelet Count Result 567 k/mm3 (150-375); Red Blood Count 2.94 M/mm3 (4.2-5.4); Red Cell Distribution Width 16.9 % (11.5-14.5)
[2021-11-30] MEDS: LEVOTHYROXINE SODIUM 50 MCG TABLET PO (06:18)
[2021-11-30 06:23] LABS: Alanine Aminotransferase 10 U/L (4-35); Albumin Level 3.1 g/dL (3.5-5.1); Alkaline Phosphatase 121 U/L (38-126); Anion Gap 7 mmol/L (8-16); Aspartate Amino Transferase 19 U/L (14-36); Bilirubin,Total 0.6 mg/dL (0.2-1.3); Blood Urea Nitrogen 26 mg/dL (7-17); Calcium 8.1 mg/dL (8.4-10.2); Carbon Dioxide 22 mmol/L (22-30); Chloride 105 mmol/L (98-107); Estimated CRCL calculation 28 ml/min; Estimated Glomerular Filt Rate 28; Glucose 163 mg/dL (65-110); Magnesium 2.2 mg/dL (1.6-2.3); Potassium 4.2 mmol/L (3.4-5.0); Sodium 134 mmol/L (137-145)
[2021-11-30 07:38] LABS: Glucose Point of Care 164 mg/dl (65-105)
--- NOTE | 2021-11-30 09:15 | P.PNIM_ITS ---
Progress Note: A&P Assessment and Plan (1) Near syncope: Code(s): R55 - Syncope and collapse Status: Acute Assessment and Plan: * Probably vasovagal versus orthostatic hypotension secondary to dehydration as patient was on diuretic * She did state that she thinks she thinks she tripped * BP seem to be stable at this time at 153/96 * Orthostatic BP * Cardiology consult thank you for your recommendations * IV fluid LR 80ml/hr, Monitor for fluid overload, will stop for now * Troponin 0.028 * Echo normal systolic function of 60 65% grade 2 diastolic dysfunction mild valve regurg or stenosis. * Carotid Doppler No stenosis the bilateral carotid arteries * Consider MRI (2) Acute kidney injury superimposed on CKD: Code(s): N17.9 - Acute kidney failure, unspecified; N18.9 - Chronic kidney disease, unspecified Status: Acute Assessment and Plan: * BUN/Cr elevated at 26/1.80 * Baseline is 1.40-1.50 * Renal ultrasound Normal kidneys without hydronephrosis * Most likely related to dehydration and hypotension * IV fluid LR at 80ml/hr discontinue for now * Total CK is 30 (3) Anemia: Code(s): D64.9 - Anemia, unspecified Status: Acute Assessment and Plan: * H/H 8.8/27.1 remains stable * Seems to probably be a combination of acute blood loss and chronic disease * Anemia labs iron 45, TIBC 212, % Sat 21, Transferrin 163, Ferritin 167, Vit B12 91, Folate >20.0 * Seems to be supplemented at home with iron and folic acid which can be continued * Trend labs * Transfuse two unit PRBC (11/28/21) (4) Head injury, acute: Qualifiers: Encounter type: initial encounter Qualified Code(s): S09.90XA - Unspecified injury of head, initial encounter Code(s): S09.90XA - Unspecified injury of head, initial encounter Status: Acute Assessment and Plan: * Secondary to near-syncope Associated with scalp laceration * Continue to monitor * Neuro check * Will need anjum removed in 10 days (5) Bradycardia: Code(s): R00.1 - Bradycardia, unspecified Status: Acute Assessment and Plan: * HR is 60-70 * pelvic baseline since patient is on Bystolic * cardiology consult * trend HR * She is probably bradycardic at baseline (6) Cervical myelopathy: Code(s): G95.9 - Disease of spinal cord, unspecified Status: Acute Assessment and Plan: * Status post laminectomy CT scan of the cervical region showed postoperative changes (7) Coronary artery disease: Code(s): I25.10 - Atherosclerotic heart disease of [place] coronary artery without angina pectoris Status: Acute Assessment and Plan: * Re-evaluate regarding aspirin and Plavix in a.m. as patient has history of coronary artery disease status post stent * Looks to be a home medication * Plavix and aspirin has been restarted per Cardiology * Vishnu on board * EKG was abnormal however cardiology is reviewed and decided that this is not something to intervene at this time and could be related to blood loss (8) COPD (chronic obstructive pulmonary disease): Code(s): J44.9 - Chronic obstructive pulmonary disease, unspecified Status: Acute Assessment and Plan: * Stable continue home medication (9) Type 2 diabetes mellitus: Code(s): E11.9 - Type 2 diabetes m
--- NOTE | 2021-11-30 09:15 | PM.IMPN ---
Progress Note: A&P Assessment and Plan (1) Near syncope: Code(s): R55 - Syncope and collapse Status: Acute Assessment and Plan: Probably vasovagal versus orthostatic hypotension secondary to dehydration as patient was on diuretic She did state that she thinks she thinks she tripped BP seem to be stable at this time at 153/96 Orthostatic BP Cardiology consult thank you for your recommendations IV fluid LR 80ml/hr, Monitor for fluid overload, will stop for now Troponin 0.028 Echo normal systolic function of 60 65% grade 2 diastolic dysfunction mild valve regurg or stenosis. Carotid Doppler No stenosis the bilateral carotid arteries Consider MRI (2) Acute kidney injury superimposed on CKD: Code(s): N17.9 - Acute kidney failure, unspecified; N18.9 - Chronic kidney disease, unspecified Status: Acute Assessment and Plan: BUN/Cr elevated at 26/1.80 Baseline is 1.40-1.50 Renal ultrasound Normal kidneys without hydronephrosis Most likely related to dehydration and hypotension IV fluid LR at 80ml/hr discontinue for now Total CK is 30 (3) Anemia: Code(s): D64.9 - Anemia, unspecified Status: Acute Assessment and Plan: H/H 8.8/27.1 remains stable Seems to probably be a combination of acute blood loss and chronic disease Anemia labs iron 45, TIBC 212, % Sat 21, Transferrin 163, Ferritin 167, Vit B12 91, Folate >20.0 Seems to be supplemented at home with iron and folic acid which can be continued Trend labs Transfuse two unit PRBC (11/28/21) (4) Head injury, acute: Qualifiers: Encounter type: initial encounter Qualified Code(s): S09.90XA - Unspecified injury of head, initial encounter Code(s): S09.90XA - Unspecified injury of head, initial encounter Status: Acute Assessment and Plan: Secondary to near-syncope Associated with scalp laceration Continue to monitor Neuro check Will need anjum removed in 10 days (5) Bradycardia: Code(s): R00.1 - Bradycardia, unspecified Status: Acute Assessment and Plan: HR is 60-70 pelvic baseline since patient is on Bystolic cardiology consult trend HR She is probably bradycardic at baseline (6) Cervical myelopathy: Code(s): G95.9 - Disease of spinal cord, unspecified Status: Acute Assessment and Plan: Status post laminectomy CT scan of the cervical region showed postoperative changes (7) Coronary artery disease: Code(s): I25.10 - Atherosclerotic heart disease of [place] coronary artery without angina pectoris Status: Acute Assessment and Plan: Re-evaluate regarding aspirin and Plavix in a.m. as patient has history of coronary artery disease status post stent Looks to be a home medication Plavix and aspirin has been restarted per Cardiology Zetia on board EKG was abnormal however cardiology is reviewed and decided that this is not something to intervene at this time and could be related to blood loss (8) COPD (chronic obstructive pulmonary disease): Code(s): J44.9 - Chronic obstructive pulmonary disease, unspecified Status: Acute Assessment and Plan: Stable continue home medication (9) Type 2 diabetes mellitus: Code(s): E11.9 - Type 2 diabetes mellitus without complications Status: Acute Assessment and Plan: Current glucose is 163 Accu cheks AC/HS Insulin sliding scale Trend glucose Adjust therapy as indicated (10) Hypertension: Code(s): I10 - Essential (primary) hypertension Status: Acute Assessment and Plan: BP currently stable at 119/51 blood pressure medications have been restarted restart when appropriate Trend BP (11) Obstructive sleep apnea: Code(s): G47.33 - Obstructive sleep apnea (adult) (pediatric) Status: Acute
[2021-11-30] MEDS: FERROUS SULFATE 324 MG TABLET PO (09:23)
[2021-11-30] MEDS: allopurinoL 100 MG TABLET PO (09:23)
[2021-11-30] MEDS: BUMETANIDE 1 MG TABLET PO (09:23)
[2021-11-30] MEDS: LORATADINE 10 MG TABLET PO (09:23)
[2021-11-30] MEDS: GABAPENTIN 300 MG CAPSULE PO (09:23)
[2021-11-30] MEDS: FOLIC ACID 1 MG TABLET PO (09:23)
[2021-11-30] MEDS: CYANOCOBALAMIN 500 MCG TABLET PO (09:23)
[2021-11-30] MEDS: buPROPion HCL XL (24 HR) 150 MG TABCR 300 MG PO (09:23)
[2021-11-30] MEDS: EZETIMIBE 10 MG TABLET PO (09:24)
[2021-11-30] MEDS: CLOPIDOGREL BISULFATE 75 MG TABLET PO (09:24)
[2021-11-30] MEDS: ASPIRIN 81 MG CHEWABLE TABLET PO (09:24)
[2021-11-30 09:34] LABS: Procalcitonin 0.2 ng/mL
--- NOTE | 2021-11-30 10:04 | PM.PNCARD ---
Progress Note: A&P Additional Plan 71-year-old lady with: Admission to the hospital with significant hemorrhage resulting from head trauma and with a fall at the rehab facility. She has had the scalp laceration repaired and she has been transfused. No clinical cardiac instability however she did have a significantly abnormal electrocardiogram which I believe was related to the blunt head trauma. She is back on dual anti-platelet therapy and clinically is stable. Again no further cardiac recommendations to make at this time Johnson Moore MD [facility] Subjective Date/time seen: Date of service: 11/30/21 10:04 Interval history: Follow-up visit in this 71-year-old woman with: History of coronary artery disease previous percutaneous revascularization elsewhere. Cardiac follow-up elsewhere. Seen during this hospitalization following a fall with significant head trauma and hemorrhage resulting in severe anemia requiring red cell transfusion. Patient had a significantly abnormal electrocardiogram following this which I have attributed to the head trauma. No other evidence of an ACS. Continues to be asymptomatic this morning feeling relatively well. She was up with assistance to the bathroom. Exam Narrative: Awake alert oriented. Appears to be in no acute distress. Appears stated age Const: General: comfortable and no acute distress Other: Obese white female pleasant cooperative no distress of any sort HENMT: General nose exam: Normal nares present Mouth: Yes moist mucous membranes Other: Dry blood noted and laceration seen on scalp Eyes: Sclera: sclerae normal Neck: Neck: supple and no JVD Chest: Other: No reproducible chest wall pain to palpation Resp: Effort & Inspection: normal respiratory effort Auscultation: clear to auscultation bilaterally, crackles and diminished lung sounds Cardio: Rate: regular rate Rhythm: regular rhythm Other: PMI not palpable. Very soft systolic murmur audible at the left sternal border GI: Auscultation: normal bowel sounds Skin: General skin exam: normal color Neuro: Cranial nerves: No Normal hearing present Cognition (Neuro): normal cognition Speech: normal speech Extrem: General: normal to inspection Other: No edema, good perfusion Psych: Affect: normal affect Objective Data Vital Signs Vital Signs: Vital Signs - 24 hr 11/29/21 12:00 11/29/21 16:00 11/29/21 16:03 Temperature 36.6 C Pulse Rate 66 65 63 Respiratory Rate 22 H 12 Blood Pressure 145/70 H Pulse Oximetry 97 98 11/29/21 20:00 11/29/21 20:05 11/29/21 23:00 Temperature 36.5 C Pulse Rate 66 Respiratory Rate 18 Blood Pressure 172/58 H 154/68 H Pulse Oximetry 98 95 11/30/21 00:00 11/30/21 04:00 11/30/21 06:00 Temperature 36.4 C 36.5 C Pulse Rate 78 65 65 Respiratory Rate 16 18 Blood Pressure 168/62 H 119/51 L Pulse Oximetry 98 100 11/30/21 08:00 11/30/21 09:25 Temperature Pulse Rate 63 Respiratory Rate Blood Pressure Pulse Oximetry 100 Intake/Output Intake/Output: Intake & Output 11/27/21 11/28/21 11/29/21 11/30/21 23:59 23:59 23:59 23:59 Intake Total 1000 2840 890 460 Output Total 450 200 Balance 1000 2840 440 260 Meds/Results Medications: Active Medications Generic Name Dose Route Start Last Admin Trade Name Freq PRN Reason Stop Dose Admin Acetaminophen 650 mg 11/27/21 22:10 11/28/21 20:42 Acetaminophen 325 Mg Tablet PO 650 mg Q4H PRN Administration Mild Pain (1-3) or Fever Hydrocodone Bitart/Acetaminophen 1 tab 11/27/21 22:10 Hydrocodone/Acetaminophen (*Crx) 5-325 Mg Tablet PO Q4H PRN Moderate Pain (4-6) Allopurinol 100 mg 11/28/21 11:35 11/30/21 09:23 Allopurinol 100 Mg Tablet PO 100 mg DAILY YANNA Administration Aspirin 81 mg 11/28/21 11:40 11/30/21 09:24 Aspirin 81 Mg Chewable Tablet PO 81 mg DAILY@0800 YANNA Administration Bisacodyl 5 mg 11/27/21 22:10 Bisacodyl 5 Mg Tab
[2021-11-30] MEDS: FLUTICASONE/UMECLIDIN/VILANTER 100-62.5-25 MCG ELLIPTA 1 PUFF INHALATION (10:40)
[2021-11-30 11:16] LABS: Glucose Point of Care 194 mg/dl (65-105)
[2021-11-30] MEDS: ENOXAPARIN 30 MG/0.3 ML SYRINGE SUB-Q (13:29)
[2021-11-30] MEDS: BISACODYL 5 MG TABLET EC PO (13:32)
[2021-11-30 16:21] LABS: Glucose Point of Care 205 mg/dl (65-105)
[2021-11-30] MEDS: INSULIN ASPART (*BKC) 100 UNITS/ML SUB-Q (16:27)
[2021-11-30] MEDS: GABAPENTIN 300 MG CAPSULE 600 MG PO (20:38)
[2021-11-30] MEDS: ACETAMINOPHEN 325 MG TABLET 650 MG PO (20:47)
[2021-11-30 21:37] LABS: Glucose Point of Care 193 mg/dl (65-105)
[2021-11-30] MEDS: HYDROcodone/acetaminophen (*CRX) 5-325 MG TABLET 1 TAB PO (23:02)
[2021-12-01] VITALS (12 sets, daily range): BP systolic 121–148; BP diastolic 46–97; PULSE 59–71; RESP 18; TEMP 36.4–36.5; O2SAT 96–99
[2021-12-01] MEDS: LEVOTHYROXINE SODIUM 50 MCG TABLET PO (06:12)
[2021-12-01 06:14] LABS: Basophils Absolute Auto 0.1 K/mm3 (0.0-0.1); Basophils Percent Auto 0.8 % (0.2-1.2); Eosinophils Absolute Auto 0.4 K/mm3 (0-0.3); Hematocrit 26.5 % (37.0-47.0); Hemoglobin 8.1 g/dL (12.0-15.0); Immature Granulocyte Absolute 0.11 K/mm3 (0.00-0.031); Immature Granulocyte Percent A 1.1 % (0-0.5); Lymphocytes Absolute Auto 1.79 K/mm3 (0.9-3.2); Lymphocytes Percent Auto 17.8 % (18.3-44.2); Mean Corpuscular HGB Conc 30.6 g/dl (32-36); Mean Corpuscular Hemoglobin 29.3 pg (26-34); Mean Platelet Volume 9.6 fl (7.4-10.4); Monocytes Absolute Auto 1.3 K/mm3 (0.1-0.6); Monocytes Percent Auto 12.5 % (2.6-8.5); Neutrophils Absolute Auto 6.4 K/mm3 (1.3-6.7); Neutrophils Percent Auto 63.8 % (45.5-73.1); Platelet Count Result 523 k/mm3 (150-375); Red Blood Count 2.76 M/mm3 (4.2-5.4); Red Cell Distribution Width 16.5 % (11.5-14.5); White Blood Count 10.1 K/mm3 (4.5-10.0)
[2021-12-01 06:20] LABS: Alanine Aminotransferase 10 U/L (4-35); Albumin Level 2.9 g/dL (3.5-5.1); Alkaline Phosphatase 114 U/L (38-126); Anion Gap 7 mmol/L (8-16); Aspartate Amino Transferase 20 U/L (14-36); Bilirubin,Total 0.5 mg/dL (0.2-1.3); Blood Urea Nitrogen 22 mg/dL (7-17); Calcium 7.9 mg/dL (8.4-10.2); Carbon Dioxide 22 mmol/L (22-30); Chloride 104 mmol/L (98-107); Estimated CRCL calculation 32 ml/min; Estimated Glomerular Filt Rate 32; Glucose 164 mg/dL (65-110); Potassium 4.2 mmol/L (3.4-5.0); Sodium 133 mmol/L (137-145)
[2021-12-01 07:51] LABS: Glucose Point of Care 180 mg/dl (65-105)
[2021-12-01] MEDS: FLUTICASONE/UMECLIDIN/VILANTER 100-62.5-25 MCG ELLIPTA 1 PUFF INHALATION (08:23)
--- NOTE | 2021-12-01 08:45 | PM.DS ---
DS: Admitting Diagnosis Discharge Date 12/01/21 0845 Admitting Diagnosis Acute blood loss anemia DS: Discharge Diagnosis Discharge Diagnosis (1) Near syncope: Code(s): R55 - Syncope and collapse Status: Acute Assessment and Plan: Probably vasovagal versus orthostatic hypotension secondary to dehydration as patient was on diuretic She did state that she thinks she thinks she tripped BP seem to be stable at this time at 153/96 Orthostatic BP Cardiology consult thank you for your recommendations IV fluid LR 80ml/hr, Monitor for fluid overload, will stop for now Troponin 0.028 Echo normal systolic function of 60 65% grade 2 diastolic dysfunction mild valve regurg or stenosis. Carotid Doppler No stenosis the bilateral carotid arteries Consider MRI (2) Acute kidney injury superimposed on CKD: Code(s): N17.9 - Acute kidney failure, unspecified; N18.9 - Chronic kidney disease, unspecified Status: Acute Assessment and Plan: BUN/Cr elevated at 26/1.80 Baseline is 1.40-1.50 Renal ultrasound Normal kidneys without hydronephrosis Most likely related to dehydration and hypotension IV fluid LR at 80ml/hr discontinue for now Total CK is 30 (3) Anemia: Code(s): D64.9 - Anemia, unspecified Status: Acute Assessment and Plan: H/H 8.8/27.1 remains stable Seems to probably be a combination of acute blood loss and chronic disease Anemia labs iron 45, TIBC 212, % Sat 21, Transferrin 163, Ferritin 167, Vit B12 91, Folate >20.0 Seems to be supplemented at home with iron and folic acid which can be continued Trend labs Transfuse two unit PRBC (11/28/21) (4) Head injury, acute: Qualifiers: Encounter type: initial encounter Qualified Code(s): S09.90XA - Unspecified injury of head, initial encounter Code(s): S09.90XA - Unspecified injury of head, initial encounter Status: Acute Assessment and Plan: Secondary to near-syncope Associated with scalp laceration Continue to monitor Neuro check Will need anjum removed in 10 days (5) Bradycardia: Code(s): R00.1 - Bradycardia, unspecified Status: Acute Assessment and Plan: HR is 60's pelvic baseline since patient is on Bystolic cardiology consult trend HR She is probably bradycardic at baseline (6) Cervical myelopathy: Code(s): G95.9 - Disease of spinal cord, unspecified Status: Acute Assessment and Plan: Status post laminectomy CT scan of the cervical region showed postoperative changes (7) Coronary artery disease: Code(s): I25.10 - Atherosclerotic heart disease of [place] coronary artery without angina pectoris Status: Acute Assessment and Plan: Re-evaluate regarding aspirin and Plavix in a.m. as patient has history of coronary artery disease status post stent Looks to be a home medication Plavix and aspirin has been restarted per Cardiology Zetia on board EKG was abnormal however cardiology is reviewed and decided that this is not something to intervene at this time and could be related to blood loss (8) COPD (chronic obstructive pulmonary disease): Code(s): J44.9 - Chronic obstructive pulmonary disease, unspecified Status: Acute Assessment and Plan: Stable continue home medication (9) Type 2 diabetes mellitus: Code(s): E11.9 - Type 2 diabetes mellitus without complications Status: Acute Assessment and Plan: Current glucose is 163 Accu cheks AC/HS Insulin sliding scale Trend glucose Adjust therapy as indicated (10) Hypertension: Code(s): I10 - Essential (primary) hypertension Status: Acute Assessment and Plan: BP currently stable at 147/59 blood pressure medications have been restarted restarted BP medications BP more stable Trend BP
--- NOTE | 2021-12-01 08:45 | P.DS_ITS ---
DS: Admitting Diagnosis Discharge Date 12/01/21 0845 Admitting Diagnosis Acute blood loss anemia DS: Discharge Diagnosis Discharge Diagnosis (1) Near syncope: Code(s): R55 - Syncope and collapse Status: Acute Assessment and Plan: * Probably vasovagal versus orthostatic hypotension secondary to dehydration as patient was on diuretic * She did state that she thinks she thinks she tripped * BP seem to be stable at this time at 153/96 * Orthostatic BP * Cardiology consult thank you for your recommendations * IV fluid LR 80ml/hr, Monitor for fluid overload, will stop for now * Troponin 0.028 * Echo normal systolic function of 60 65% grade 2 diastolic dysfunction mild valve regurg or stenosis. * Carotid Doppler No stenosis the bilateral carotid arteries * Consider MRI (2) Acute kidney injury superimposed on CKD: Code(s): N17.9 - Acute kidney failure, unspecified; N18.9 - Chronic kidney disease, unspecified Status: Acute Assessment and Plan: * BUN/Cr elevated at 26/1.80 * Baseline is 1.40-1.50 * Renal ultrasound Normal kidneys without hydronephrosis * Most likely related to dehydration and hypotension * IV fluid LR at 80ml/hr discontinue for now * Total CK is 30 (3) Anemia: Code(s): D64.9 - Anemia, unspecified Status: Acute Assessment and Plan: * H/H 8.8/27.1 remains stable * Seems to probably be a combination of acute blood loss and chronic disease * Anemia labs iron 45, TIBC 212, % Sat 21, Transferrin 163, Ferritin 167, Vit B12 91, Folate >20.0 * Seems to be supplemented at home with iron and folic acid which can be continued * Trend labs * Transfuse two unit PRBC (11/28/21) (4) Head injury, acute: Qualifiers: Encounter type: initial encounter Qualified Code(s): S09.90XA - Unspecified injury of head, initial encounter Code(s): S09.90XA - Unspecified injury of head, initial encounter Status: Acute Assessment and Plan: * Secondary to near-syncope Associated with scalp laceration * Continue to monitor * Neuro check * Will need anjum removed in 10 days (5) Bradycardia: Code(s): R00.1 - Bradycardia, unspecified Status: Acute Assessment and Plan: * HR is 60's * pelvic baseline since patient is on Bystolic * cardiology consult * trend HR * She is probably bradycardic at baseline (6) Cervical myelopathy: Code(s): G95.9 - Disease of spinal cord, unspecified Status: Acute Assessment and Plan: * Status post laminectomy CT scan of the cervical region showed postoperative changes (7) Coronary artery disease: Code(s): I25.10 - Atherosclerotic heart disease of [place] coronary artery without angina pectoris Status: Acute Assessment and Plan: * Re-evaluate regarding aspirin and Plavix in a.m. as patient has history of coronary artery disease status post stent * Looks to be a home medication * Plavix and aspirin has been restarted per Cardiology * Tristentia on board * EKG was abnormal however cardiology is reviewed and decided that this is not something to intervene at this time and could be related to blood loss (8) COPD (chronic obstructive pulmonary disease): Code(s): J44.9 - Chronic obstructive pulmonary disease, unspecified Status: Acute Assessment and Plan: * Stable continue h
[2021-12-01] MEDS: buPROPion HCL XL (24 HR) 150 MG TABCR 300 MG PO (09:18)
[2021-12-01] MEDS: GABAPENTIN 300 MG CAPSULE PO (09:18)
[2021-12-01] MEDS: BUMETANIDE 1 MG TABLET PO (09:18)
[2021-12-01] MEDS: LORATADINE 10 MG TABLET PO (09:18)
[2021-12-01] MEDS: CYANOCOBALAMIN 500 MCG TABLET PO (09:19)
[2021-12-01] MEDS: EZETIMIBE 10 MG TABLET PO (09:19)
[2021-12-01] MEDS: allopurinoL 100 MG TABLET PO (09:19)
[2021-12-01] MEDS: NEBIVOLOL HCL 5 MG TABLET 10 MG PO (09:19)
[2021-12-01] MEDS: FOLIC ACID 1 MG TABLET PO (09:19)
[2021-12-01] MEDS: ASPIRIN 81 MG CHEWABLE TABLET PO (09:19)
[2021-12-01] MEDS: FERROUS SULFATE 324 MG TABLET PO (09:19)
[2021-12-01] MEDS: CLOPIDOGREL BISULFATE 75 MG TABLET PO (09:19)
[2021-12-01] MEDS: INSULIN GLARGINE (*BKC) 100 UNITS/ML 22 UNITS SUB-Q (09:20)
--- NOTE | 2021-12-01 10:45 | PM.PNCARD ---
Progress Note: A&P Assessment and Plan (1) Coronary artery disease: Code(s): I25.10 - Atherosclerotic heart disease of [place] coronary artery without angina pectoris Status: Acute Assessment and Plan: Patient has a history of multiple stents including InStent restenosis of the RCA in 2017. She does have chronic dyspnea which is worsening and could be an anginal equivalent. She has a markedly abnormal ECG concerning for LAD ischemia. Will continue aspirin. Will add back clopidogrel 75 mg p.o. daily which she had been previously on at the rehab hospital. Will start her on nitroglycerin paste 1 in Q 6 hours. Continue nebivolol, Repatha and Zetia. Will transfer to intermediate care unit. Will also order a stat troponin. Will discuss with Dr. Moore regarding possibility of cardiac catheterization. This is a difficult and complex situation given her severe anemia, known CAD, recent surgery, worsening renal failure and pericardial issues. (2) Abnormal ECG: Code(s): R94.31 - Abnormal electrocardiogram [ECG] [EKG] Status: Acute Assessment and Plan: Significantly abnormal ECG concerning for LAD ischemia. (3) Acute kidney injury superimposed on CKD: Code(s): N17.9 - Acute kidney failure, unspecified; N18.9 - Chronic kidney disease, unspecified Status: Acute Assessment and Plan: Creatinine above 2 at this point. Slightly worsening. (4) Chronic combined systolic and diastolic CHF (congestive heart failure): Code(s): I50.42 - Chronic combined systolic (congestive) and diastolic (congestive) heart failure Status: Deleted Assessment and Plan: Continue current medications but will add nitroglycerin. (5) Pericardial effusion: Code(s): I31.3 - Pericardial effusion (noninflammatory) Status: Acute Assessment and Plan: She does have a pericardial effusion as well as a thickened pericardium/echogenicity seen on the pericardium.? Etiology or clinical significance to this point. May also be contributing to her chronic dyspnea (6) Hypertension associated with diabetes: Code(s): E11.59 - Type 2 diabetes mellitus with other circulatory complications; I15.2 - Hypertension secondary to endocrine disorders Status: Acute Assessment and Plan: At goal (7) Severe anemia: Code(s): D64.9 - Anemia, unspecified Status: Acute Assessment and Plan: She has only ordered for 1 unit of blood. Will will order 1 more unit of packed red blood cells. (8) Hyperlipidemia associated with type 2 diabetes mellitus: Code(s): E11.69 - Type 2 diabetes mellitus with other specified complication; E78.5 - Hyperlipidemia, unspecified Status: Acute Assessment and Plan: On Repatha and Zetia Additional Plan 71-year-old lady with: Admission to the hospital with significant hemorrhage resulting from head trauma and with a fall at the rehab facility. She has had the scalp laceration repaired and she has been transfused. No clinical cardiac instability however she did have a significantly abnormal electrocardiogram which I believe was related to the blunt head trauma. She is back on dual anti-platelet therapy and clinically is stable. Again no further cardiac recommendations to make at this time Johnson Moore MD [facility] Subjective Date/time seen: 12/01/21 10:45 Interval history: Follow-up visit in this 71-year-old woman with: History of coronary artery disease previous percutaneous revascularization elsewhere. Cardiac follow-up elsewhere. Seen during this hospitalization following a fall with significant head trauma and hemorrhage resulting in severe anemia requiring red cell transfusion. Patient had a significantly abnormal electrocardiogram following this which I have attributed to the head trauma. No other evidence of an ACS. Continues to be asymptomatic this morning feeling relatively well. She was up with assistance to th
[2021-12-01 11:39] LABS: EDCOVIDSCREEN Negative (Negative)
[2021-12-01 11:57] LABS: Glucose Point of Care 164 mg/dl (65-105)
[2021-12-01] MEDS: ENOXAPARIN 30 MG/0.3 ML SYRINGE SUB-Q (13:52)
== END 2021-12-01 15:05 | DRG 312 ==
LOC: ANHED 21:56 → ANH3MEDSUR 11-28 00:37 → ANHICU 11-28 14:52 → ANH2MED 12-01 06:27 → ANHICU 12-02 11:55
PROVIDERS: Family Medicine; Internal Medicine Cardiovascular Disease; Admitting Provider Internal Medicine; Emergency Provider Emergency Medicine; Visit Provider Nurse Practitioner
DX: I95.1 Orthostatic hypotension (principal); I13.0 Hypertensive heart and chronic kidney disease with heart failure and stage 1 through stage 4 chronic kidney disease, or unspecified chronic kidney disease; I50.42 Chronic combined systolic (congestive) and diastolic (congestive) heart failure; N17.9 Acute kidney failure, unspecified; D62 Acute posthemorrhagic anemia; G95.9 Disease of spinal cord, unspecified; I31.3 Pericardial effusion (noninflammatory); E86.0 Dehydration; E11.22 Type 2 diabetes mellitus with diabetic chronic kidney disease; N18.9 Chronic kidney disease, unspecified; Z20.822 Contact with and (suspected) exposure to COVID-19; D63.8 Anemia in other chronic diseases classified elsewhere; S01.01XA Laceration without foreign body of scalp, initial encounter; W18.39XA Other fall on same level, initial encounter; D72.829 Elevated white blood cell count, unspecified; E11.59 Type 2 diabetes mellitus with other circulatory complications; I15.2 Hypertension secondary to endocrine disorders; J44.9 Chronic obstructive pulmonary disease, unspecified; G47.33 Obstructive sleep apnea (adult) (pediatric); R00.1 Bradycardia, unspecified; M19.90 Unspecified osteoarthritis, unspecified site; I25.10 Atherosclerotic heart disease of native coronary artery without angina pectoris; E78.5 Hyperlipidemia, unspecified; Z95.5 Presence of coronary angioplasty implant and graft; Z98.890 Other specified postprocedural states
CPT/HCPCS: 12004; 36415; 36430; 70450; 72125; 76775; 80048; 80053; 82550; 82607; 82728; 82746; 82948; 83540; 83550; 83735; 83880; 84145; 84443; 84466; 84484; 85014; 85018; 85025; 85055; 85610; 86850; 86900; 86901; 86920; 87077; 87086; 87186; 87426; 93005; 93306; 93880; 94640; 96360; 96361; 97162; 97165; 99285; A9270; C9803; G0378; J1650; J1815; J7030; J7050; J7120; P9016

== ENCOUNTER 2021-12-07 19:57 | Emergency (ER) | payer OTHER, MEDICARE, SELFPAY ==
--- NOTE | ~2021-12-07 | CT_ITS ---
EXAMINATION: CT cervical spine wo con DATE: 12/07/2021 21:31 INDICATION: Trauma. TECHNIQUE: Computed tomography (CT) of the cervical spine was performed without intravenous contrast. Automated exposure control and iterative reconstruction technique were employed. The dose-length pro duct was 498.09 mGy-cm. COMPARISON: 11/27/2021. FINDINGS: Exam limited by beam hardening artifact from cervical hardware and motion. Counting reference: Craniocervical junction. There are 7 cervical type vertebral bodies. Anatomic Variants: None. Alignment: Alignment is anatomic. Craniocervical junction: Severe degenerative changes, grossly aligned. Osseous structures/fracture: Multilevel left-sided laminar hardware and stable presumed postsurgical right-sided laminar defects. No hardware loosening or fracture. No evidence of a lytic or blastic pro cess in the visualized spine. No evidence of acute or chronic fracture. Right C2-3 facet fusion. Cervical soft tissues: The paraspinal soft tissues planes are maintained. Incidental note of a 2.8 cm subcutaneous lipoma in the right lower neck. Degenerative changes: Multilevel mild facet arthropathy and degenerative disc disease. IMPRESSION: Exam limited by motion artifact and artifact from cervical hardware. Within those constraints, no def inite traumatic malalignment or osseous fracture detected in the cervical spine. Reviewed, dictated and finalized at location K. IMPRESSION: Exam limited by motion artifact and artifact from cervical hardware. Within tho se constraints, no definite traumatic malalignment or osseous fracture detected in the cervical spine.
--- NOTE | ~2021-12-07 | CT_ITS ---
EXAMINATION: CT brain wo con DATE: 12/07/2021 21:30 INDICATION: Head injury. TECHNIQUE: Computed tomography (CT) of the head was performed without intravenous contrast. The mA wa s adjusted according to patient size. Iterative reconstruction technique was employed. The dose-lengt h product was 605.33 mGy-cm. COMPARISON: Head CT 11/27/2021 FINDINGS: There are scattered areas of low attenuation in the cerebral white matter. There is no intr acranial hemorrhage or acute infarct. There is a 9 mm calcified extra-axial mass overlying left parie zhen lobe. The ventricles are normal in size. There is mild mucosal thickening in the ethmoid sinuses. The mastoid air cells are normal. There are likely changes of ocular lens replacement surgeries. The re is a left posterior scalp hematoma. IMPRESSION: 1. Stable 9 mm calcified extra-axial mass overlying left parietal lobe, which may be a meningioma or dural calcification. 2. Stable mild nonspecific cerebral white matter disease, which likely represents chronic small vesse l ischemic disease. Reviewed, dictated and finalized at location E. IMPRESSION: 1. Stable 9 mm calcified extra-axial mass overlying left parietal lobe, which m ay be a meningioma or dural calcification. 2. Stable mild nonspecific cerebral white matter disease, which likely represen ts chronic small vessel ischemic disease.
[2021-12-07 19:51] VITALS: BP 159/50; PULSE 63; RESP 18; TEMP 37; O2SAT 100
--- NOTE | 2021-12-07 20:36 | ED.FALL ---
HPI - Fall General Chief Complaint: Fall Stated Complaint: spinal fusion at [facility] - increased falls Time Seen by Provider: 12/07/21 20:00 History of Present Illness HPI Narrative: Patient is a 71-year-old female who presents ER status post fall. Patient reports she got up to use her bedside commode when she fell. Apparently patient is not supposed to get up and walk on her own but she continues to do so. Patient recently had a cervical fusion at [facility]. Patient did strike her head. She takes Plavix. She denies loss of consciousness. She has no reports of pain to her neck or arms. She has no new numbness or tingling to the arms or legs. She reports mild headache from striking her head. No fevers or chills or sweats. No change in vision. Sent here for further evaluation due to striking her head on antiplatelet medication. Related Data Home Medications Medication Instructions Recorded Confirmed Lantus U-100 Insulin See Rx Instructions .ROUTE .COMPLEX 11/19/21 11/28/21 Repatha SureClick 140 mg SUBCUT [id number] 11/19/21 11/28/21 Trelegy Ellipta 1 inh INHALATION DAILY 11/19/21 11/28/21 allopurinol 100 mg PO DAILY 11/19/21 12/01/21 aspirin 81 mg PO DAILY 11/19/21 11/28/21 bupropion HCl 300 mg PO QAM 11/19/21 11/28/21 cetirizine [Zyrtec] 10 mg PO DAILY 11/19/21 11/28/21 clopidogrel 75 mg PO DAILY 11/19/21 11/28/21 ezetimibe [Zetia] 10 mg PO DAILY 11/19/21 11/28/21 ferrous sulfate 325 mg PO DAILY 11/19/21 11/28/21 gabapentin 600 mg PO HS 11/19/21 11/28/21 hydralazine 50 mg PO QID 11/19/21 11/28/21 levothyroxine 50 mcg PO DAILY 11/19/21 11/28/21 bumetanide 1 mg PO DAILY 11/28/21 11/28/21 cyanocobalamin (vitamin B-12) 500 mcg PO DAILY 11/28/21 11/28/21 docusate sodium 100 mg PO BID 11/28/21 11/28/21 folic acid 1 mg PO DAILY 11/28/21 11/28/21 gabapentin 300 mg PO DAILY 11/28/21 11/28/21 insulin lispro 6 unit SUBCUT TID 11/28/21 11/28/21 insulin lispro See Protocol SUBCUT TIDWM 11/28/21 11/28/21 melatonin 3 mg PO HS PRN 11/28/21 11/28/21 nebivolol 10 mg PO DAILY 11/28/21 11/28/21 tizanidine 2 mg PO Q8H PRN 11/28/21 11/28/21 Allergies Allergy/AdvReac Type Severity Reaction Status Date / Time potassium Allergy Unknown Verified 12/05/21 14:08 ambrisentan AdvReac Other Verified 12/05/21 14:08 amoxicillin AdvReac Nausea and Verified 12/05/21 14:08 Vomiting codeine AdvReac Nausea and Verified 12/05/21 14:08 Vomiting morphine AdvReac Vomiting Verified 12/05/21 14:08 rosuvastatin AdvReac Muscle Pain Verified 12/05/21 14:08 Review of Systems Review of Systems: All systems reviewed & are unremarkable except as noted in HPI and below Constitutional: Constitutional: Denies chills, Denies fever(s) and Reports weakness ENT: Denies nasal congestion and Denies sore throat Gastrointestinal: Gastrointestinal: Denies nausea and Denies vomiting Musculoskeletal: Musculoskeletal: Denies back pain, Denies arthralgias and Denies joint swelling Neurologic: Denies syncope, Reports headache(s), Denies focal weakness and Denies numbness PMFSH Past Medical History Medical History (Updated 12/07/21 @ 22:10 by Isai Hoang MD) Bwupg-di-shvbous kidney injury Anxiety Chronic low back pain COPD (chronic obstructive pulmonary disease) Coronary artery disease Depression Gout Hyperlipidemia Hypertension Neck pain Obstructive sleep apnea Osteoarthritis Type 2 diabetes mellitus Surgical History Surgical History (Updated 12/07/21 @ 20:46 by Isai Hoang MD) History of fusion of cervical spine Family History Family History Father Cardiovascular disease Mother Arthritis Social History Social History (System 12/05/21 @ 14:08 by Paola Morataya) Social History: lives alone in a two-story home. Bedroom is on the main level. Patient has shower chair, straight cane, 4 wheeled walker. Smoking status: Never smoker Alcohol intake: current Drinks p
--- NOTE | 2021-12-07 22:37 | PC.NURSE ---
[facility] ETA for transport back to facility is 0300.
[2021-12-07 23:00] VITALS: BP 148/82; PULSE 66; RESP 18; O2SAT 98
--- NOTE | 2021-12-07 23:21 | PC.NURSE ---
Spoke to Lynsey (sister) at [phone] as per patient request. Updated on patient condition.
--- NOTE | 2021-12-07 23:26 | PC.NURSE ---
[facility] [place]. Report given to Hardeep. Awaiting transportation.
--- NOTE | 2021-12-08 03:29 | PC.NURSE ---
New update from [facility]. ETA now 04:30 . Patient updated
[2021-12-08 04:41] VITALS: BP 143/86; PULSE 75; RESP 20; O2SAT 97
== END 2021-12-08 04:43 ==
PROVIDERS: Emergency Provider Emergency Medicine; PCP Internal Medicine
DX: S09.90XA Unspecified injury of head, initial encounter (principal); E11.9 Type 2 diabetes mellitus without complications; J44.9 Chronic obstructive pulmonary disease, unspecified; I25.10 Atherosclerotic heart disease of native coronary artery without angina pectoris; E78.5 Hyperlipidemia, unspecified; I10 Essential (primary) hypertension; G47.33 Obstructive sleep apnea (adult) (pediatric); M19.90 Unspecified osteoarthritis, unspecified site; Z98.1 Arthrodesis status; Z79.4 Long term (current) use of insulin; Z79.02 Long term (current) use of antithrombotics/antiplatelets; Z79.82 Long term (current) use of aspirin; R90.82 White matter disease, unspecified; R93.0 Abnormal findings on diagnostic imaging of skull and head, not elsewhere classified; W18.30XA Fall on same level, unspecified, initial encounter
CPT/HCPCS: 70450; 72125; 99284

== ENCOUNTER 2021-12-15 13:12 | Emergency (ER) | payer OTHER, MEDICARE, SELFPAY ==
--- NOTE | ~2021-12-15 | CT_ITS ---
EXAMINATION: CT brain wo con DATE: 12/15/2021 20:47 INDICATION: Headache. TECHNIQUE: Computed tomography (CT) of the head was performed without intravenous contrast. The mA wa s adjusted according to patient size. Iterative reconstruction technique was employed. The dose-lengt h product was 605.33 mGy-cm. COMPARISON: 12/07/2021. FINDINGS: No acute intracranial hemorrhage or extra-axial fluid collection. No hydrocephalus, mass, or herniation. No acute ischemic infarct. Unremarkable dural venous sinus attenuation. No acute osseous abnormality. The aerated spaces are clear. Mild atrophy and chronic white matter change. Bilateral basal ganglia calcifications. Bilateral lens replacements. Stable left parietal meningioma or dural calcification. IMPRESSION: No acute intracranial process. Reviewed, dictated and finalized at location K.
--- NOTE | ~2021-12-15 | XR_ITS ---
EXAMINATION: XR chest 1V portable Exam Date/Time: 12/15/2021 19:07 CDT CLINICAL HISTORY: dizziness, HX COPD, HTN, DIABETIC Comparison: None available RESULT: Lines, tubes, and devices: None. Lungs and pleura: Senescent changes, otherwise clear. Cardiomediastinal silhouette: Unremarkable cardiomediastinal silhouette. Other: No acute osseous or upper abdominal finding. IMPRESSION: No acute cardiopulmonary process. Reviewed, dictated and finalized at location K.
[2021-12-15 13:24] VITALS: BP 139/77; PULSE 63; RESP 16; TEMP 36.8; O2SAT 100
[2021-12-15 16:52] LABS: Basophils Absolute Auto 0.1 K/mm3 (0.0-0.1); Basophils Percent Auto 0.6 % (0.2-1.2); Eosinophils Absolute Auto 0.5 K/mm3 (0-0.3); Eosinophils Percent Auto 3.9 % (0-4.4); Hematocrit 26.8 % (37.0-47.0); Hemoglobin 8.2 g/dL (12.0-15.0); Immature Granulocyte Absolute 0.13 K/mm3 (0.00-0.031); Lymphocytes Absolute Auto 1.73 K/mm3 (0.9-3.2); Mean Corpuscular HGB Conc 30.6 g/dl (32-36); Mean Corpuscular Hemoglobin 29.6 pg (26-34); Mean Corpuscular Volume 96.8 fl (80-100); Mean Platelet Volume 9.5 fl (7.4-10.4); Monocytes Percent Auto 7.5 % (2.6-8.5); Neutrophils Absolute Auto 9.9 K/mm3 (1.3-6.7); Platelet Count Result 678 k/mm3 (150-375); Red Blood Count 2.77 M/mm3 (4.2-5.4); Red Cell Distribution Width 17.4 % (11.5-14.5); White Blood Count 13.3 K/mm3 (4.5-10.0)
[2021-12-15 17:08] LABS: Alanine Aminotransferase 10 U/L (4-35); Albumin Level 3.6 g/dL (3.5-5.1); Alkaline Phosphatase 121 U/L (38-126); Anion Gap 10 mmol/L (8-16); Aspartate Amino Transferase 25 U/L (14-36); Bilirubin,Total 0.7 mg/dL (0.2-1.3); Blood Urea Nitrogen 24 mg/dL (7-17); Calcium 8.8 mg/dL (8.4-10.2); Carbon Dioxide 24 mmol/L (22-30); Chloride 103 mmol/L (98-107); Estimated Glomerular Filt Rate 29; Glucose 154 mg/dL (65-110); Sodium 137 mmol/L (137-145)
[2021-12-15 18:35] VITALS: BP 154/59; PULSE 58; RESP 19; TEMP 36.9; O2SAT 100
--- NOTE | 2021-12-15 19:07 | ECG_ITS ---
Measurements Intervals [place] Rate: 68 P: 83 MT: 201 QRS: -11 QRSD: 106 T: 149 QT: 427 QTc: 454 Interpretive Statements SINUS RHYTHM WITH SINUS ARRHYTHMIA ST DEVIATION AND MODERATE T-WAVE ABNORMALITY, CONSIDER ANTEROSEPTAL AND ANTEROLATERAL ISCHEMIA [-0.1+ mV T WAVE IN V3-V6] ABNORMAL ECG COMPARED TO ECG 11/29/2021 11:13:25 SINUS ARRHYTHMIA NOW PRESENT Electronically Signed On 12-16-2021 18:03:46 CDT by Carloz Oreilly M.D.
--- NOTE | 2021-12-15 19:10 | PC.NURSE ---
Called and added MG 1909
[2021-12-15 19:21] LABS: Magnesium 2.1 mg/dL (1.6-2.3)
[2021-12-15 19:22] VITALS: BP 148/60; PULSE 60; RESP 14; O2SAT 99
--- NOTE | 2021-12-15 19:24 | ED.DIZZY ---
HPI - Dizziness General Chief Complaint: Dizziness Stated Complaint: fall, dizziness Time Seen by Provider: 12/15/21 19:01 Source: patient History of Present Illness HPI Narrative: Patient presents with dizziness and falls. So she is fallen twice over the past month last fall was approximately 2 weeks ago. Reports she has recurrent dizziness particularly when she stands up in the morning make for her to participate in her rehab so she was referred to the ER for evaluation. Denies any chest pain shortness of breath fevers cough congestion nausea vomiting diarrhea. She is currently on antibiotics for a urinary infection. Patient is most noted when she is standing up describes sensation like she is going to pass out Related Data Home Medications Medication Instructions Recorded Confirmed Lantus U-100 Insulin 24 unit SUBCUT DAILY 11/19/21 12/15/21 Trelegy Ellipta 1 inh INHALATION DAILY 11/19/21 12/15/21 allopurinol 200 mg PO DAILY 11/19/21 12/15/21 bupropion HCl 300 mg PO QAM 11/19/21 12/15/21 clopidogrel 75 mg PO DAILY 11/19/21 12/15/21 ezetimibe [Zetia] 10 mg PO DAILY 11/19/21 12/15/21 ferrous sulfate 325 mg PO DAILY 11/19/21 12/15/21 hydralazine 50 mg PO TID 11/19/21 12/15/21 levothyroxine 50 mcg PO DAILY 11/19/21 12/15/21 nebivolol 5 mg PO DAILY 11/28/21 12/15/21 insulin regular human 20 unit SUBCUT TID 12/12/21 12/15/21 torsemide 80 mg PO QAM 12/15/21 12/15/21 Allergies Allergy/AdvReac Type Severity Reaction Status Date / Time potassium Allergy Unknown Verified 12/05/21 14:08 ambrisentan AdvReac Other Verified 12/05/21 14:08 amoxicillin AdvReac Nausea and Verified 12/05/21 14:08 Vomiting codeine AdvReac Nausea and Verified 12/05/21 14:08 Vomiting morphine AdvReac Vomiting Verified 12/05/21 14:08 rosuvastatin AdvReac Muscle Pain Verified 12/05/21 14:08 Review of Systems Review of Systems: CONSTITUTIONAL: Denies fever, chills, or sweats. EYES: Denies visual changes, redness, or discharge. ENT: Denies rhinorrhea, congestion, sore throat, or otalgia. CARDIOVASCULAR: Denies chest pain, palpitations, or edema. RESPIRATORY: Denies cough or dyspnea. GASTROINTESTINAL: Denies abdominal pain, nausea, vomiting, or diarrhea. GENITOURINARY: Denies dysuria or hematuria. SKIN: Denies rash or itching. MUSCULOSKELETAL: Denies back pain, joint pain, or myalgia. NEUROLOGIC: Denies headache, numbness, or weakness. PSYCHIATRIC: Denies anxiety or depression. All systems reviewed & are unremarkable except as noted in HPI and below PMFSH Past Medical History Medical History Sctkn-hg-qrhmptm kidney injury Anxiety Chronic low back pain COPD (chronic obstructive pulmonary disease) Coronary artery disease Depression Gout Hyperlipidemia Hypertension Neck pain Obstructive sleep apnea Osteoarthritis Type 2 diabetes mellitus Surgical History Surgical History History of fusion of cervical spine Family History Family History Father Cardiovascular disease Mother Arthritis Social History Social History Social History: lives alone in a two-story home. Bedroom is on the main level. Patient has shower chair, straight cane, 4 wheeled walker. Smoking status: Never smoker Alcohol intake: current Drinks per week: 1 Substance use: never Spiritual care concerns: No Exam Narrative: GENERAL: Well-appearing, well-nourished, and in no acute distress. HEAD: Normocephalic, atraumatic. EYES: PERRLA and EOMI. ENT: Nares clear, no rhinorrhea or epistaxis. Mucous membranes moist. NECK: Supple. No masses. No JVD CHEST: Clear to auscultation. No respiratory distress. No wheezes rales or rhonchi HEART: Regular rate and rhythm. No murmur heard. Normal peripheral pulses. ABDOMEN: Soft, nontender, n
[2021-12-15 19:25] LABS: Appearance Urine Clear (Clear); Bilirubin Urine Negative (Negative); Color Urine Yellow (Yellow); Glucose Urine UA Negative (Negative); Ketones Urine Negative (Negative); Leukocyte Esterase Ur Trace LEU/UL (Negative); Nitrate Urine Positive (Negative); Protein Urine 1+ mg/dL (Negative); Specific Grav Ur 1.015 (1.001-1.035); Urobilinogen Urine 0.2 mg/dL (<2.0); pH Urine 5.5 (5.0-9.0)
[2021-12-15 19:27] LABS: Bacteria Urine 1+ /hpf; Mucus Urine Rare /lpf; RBC Urine 0-2 /hpf (0-2); Squamous Epithelial Cell Urine Rare /hpf (Few)
[2021-12-15] MEDS: SODIUM CHLORIDE 0.9% IV 500 ML 999 ML IV CONT (19:31)
[2021-12-15 19:36] LABS: Add Urine Microscopic? YES; Blood Urine Trace-Intact (Negative)
--- NOTE | 2021-12-15 20:00 | PC.NURSE ---
Radha received from Daniella BLOOM. Patient found resting comfortably in ED stretcher. Calm and cooperative. AAOx4. Equal and unlabored resp. Skin is warm and dry. IV in place secured and patent. No complaints at this time. Will continue to monitor patient.
[2021-12-15 21:31] VITALS: BP 171/45; PULSE 70; RESP 14; O2SAT 97
--- NOTE | 2021-12-15 21:57 | PC.NURSE ---
SHIVAM Walter, [facility] ETA 23:30
--- NOTE | 2021-12-15 22:38 | PC.NURSE ---
Report to MERLE Meier. call w/ pt. ETA at [phone]
[2021-12-15 23:48] VITALS: BP 162/60; PULSE 68; RESP 18; O2SAT 99
== END 2021-12-16 ==
PROVIDERS: Emergency Medicine; Emergency Provider Emergency Medicine; PCP Internal Medicine
DX: R42 Dizziness and giddiness (principal); N39.0 Urinary tract infection, site not specified; R29.6 Repeated falls; E11.22 Type 2 diabetes mellitus with diabetic chronic kidney disease; I12.9 Hypertensive chronic kidney disease with stage 1 through stage 4 chronic kidney disease, or unspecified chronic kidney disease; N18.9 Chronic kidney disease, unspecified; I25.10 Atherosclerotic heart disease of native coronary artery without angina pectoris; J44.9 Chronic obstructive pulmonary disease, unspecified; E78.5 Hyperlipidemia, unspecified; G47.33 Obstructive sleep apnea (adult) (pediatric); M10.9 Gout, unspecified; M19.90 Unspecified osteoarthritis, unspecified site; F41.9 Anxiety disorder, unspecified; Z79.4 Long term (current) use of insulin; Z98.1 Arthrodesis status; R94.31 Abnormal electrocardiogram [ECG] [EKG]
CPT/HCPCS: 36415; 70450; 71045; 80053; 81001; 83735; 85025; 93005; 96360; 99284; J7040